=== PATIENT | male | born 1965 | race Caucasian/White ===

== ENCOUNTER 2018-01-06 17:01 | Observation (INO) | payer BC ==
[2018-01-06] MEDS ORDERED: NITROGLYCERIN OINT 1 INCH/GM PACKET TOPICAL STA (17:28)
[2018-01-06] MEDS ORDERED: ASPIRIN 81 MG PO STA (17:28)
--- NOTE | 2018-01-06 17:31 | ED ---
General Adult HPI - General Chief complaint: Chest Pain Stated complaint: Chest discomfort Time Seen by Provider: 01/06/18 17:19 Source: patient, family, RN notes reviewed Mode of arrival: ambulatory Limitations: no limitations - History of Present Illness Initial comments: Patient is a pleasant 53-year-old male presenting to the emergency department with complaints of chest discomfort. Onset was yesterday evening after "exercise ". Discomfort was severe and lasted about 5 minutes. Discomfort was heaviness with tingling to both arms. Patient did have some associated nausea and sweating and shortness of breath. Patient only has minimal discomfort in his chest today. Patient has been fatigued. No history of similar symptoms previously. - Related Data Home Medications Medication Instructions Recorded Confirmed Aspirin EC [Ecotrin] 325 mg PO DAILY PRN 01/06/18 01/06/18 Ibuprofen [Advil] 400 mg PO Q8HR PRN 01/06/18 01/06/18 Allergies Allergy/AdvReac Type Severity Reaction Status Date / Time codeine Allergy Unknown Verified 01/06/18 17:27 Review of Systems ROS Statement: Those systems with pertinent positive or pertinent negative responses have been documented in the HPI. ROS Other: All systems not noted in ROS Statement are negative. Constitutional: Denies: fever Eyes: Denies: eye pain ENT: Denies: ear pain Respiratory: Reports: dyspnea. Denies: cough Cardiovascular: Reports: chest pain Endocrine: Reports: fatigue Gastrointestinal: Reports: nausea Genitourinary: Denies: dysuria Musculoskeletal: Denies: back pain Skin: Denies: rash Neurological: Denies: weakness Past Medical History Past Medical History: No Reported History History of Any Multi-Drug Resistant Organisms: None Reported Past Surgical History: Orthopedic Surgery Past Psychological History: No Psychological Hx Reported Smoking Status: Current every day smoker Past Alcohol Use History: Occasional Past Drug Use History: None Reported General Exam Limitations: no limitations General appearance: alert, in no apparent distress Head exam: Present: atraumatic Eye exam: Present: normal appearance, PERRL ENT exam: Present: normal oropharynx Neck exam: Present: normal inspection Respiratory exam: Present: normal lung sounds bilaterally. Absent: chest wall tenderness Cardiovascular Exam: Present: regular rate, normal rhythm Expanded Peripheral pulses: 2+: Radial (R), Radial (L), Posterior Tibialis (R), Posterior Tibialis (L) GI/Abdominal exam: Present: soft. Absent: tenderness Extremities exam: Present: normal inspection. Absent: pedal edema, calf tenderness Neurological exam: Present: alert Psychiatric exam: Present: normal affect, normal mood Skin exam: Present: normal color Course Vital Signs 01/06/18 17:02 Temperature 97.9 F Pulse Rate 66 Respiratory 20 Rate Blood Pressure 149/82 O2 Sat by Pulse 98 Oximetry EKG Findings - EKG Comments: EKG Findings:: Sinus bradycardia 59. TN 166. QRS 144. QT 444. QTC 439. Left axis. Right bundle branch block. No acute ST change. Medical Decision Making - Medical Decision Making Patient reevaluated and resting comfortably in bed. Patient and family updated on results and plan. Case discussed in detail with Dr. Hernandez,, who will admit for hospital call. - Lab Data Result diagrams: 01/06/18 17:29 01/06/18 17:29 Lab Results 01/06/18 01/06/18 01/06/18 Range/Units 17:29 17:29 17:29 WBC 8.4 (3.8-10.6) k/uL RBC 4.61 (4.30-5.90) m/uL Hgb 15.0 (13.0-17.5) gm/dL Hct 45.3 (39.0-53.0) % MCV 98.3 (80.0-100.0) fL MCH 32.6 (25.0-35.0) pg MCHC 33.2 (31.0-37.0) g/dL RDW 12.7 (11.5-15.5) % Plt Count 259 (150-450) k/uL Neutrophils % 66 % Lymphocytes % 25 % Monocytes % 5 % Eosinophils % 2 % Basophils % 1 % Neutrophils # 5.5 (1.3-7.7) k/uL Lymphocytes # 2.1 (1.0-4.8) k/uL Monocytes # 0.4 (0-1.0) k/uL Eosinophils # 0.2 (0-0.7) k/uL Basophils # 0.1 (0-0.2) k/uL PT (9.0-12.0) sec INR (<1.2) APTT (22.0-30.0) sec Sodium 141 (137-145) mmol/L Potassium 4.4 (3.5-5.1) mmol/L Chloride 108 H (98-107) mmol/L Carbon Dioxide 25 (22-30) mmol/L Anion Gap 8 mmol/L BUN 17 (9-20) mg/dL Creatinine 1.00 (0.66-1.25) mg/dL Est GFR (CKD-EPI)AfAm >90 (>60 ml/min/1.73 sqM) Est GFR (CKD-EPI)NonAf 85 (>60 ml/min/1.73 sqM) Glucose 105 H (74-99) mg/dL Calcium 9.3 (8.4-10.2) mg/dL Magnesium 2.2 (1.6-2.3) mg/dL Total Bilirubin 0.5 (0.2-1.3) mg/dL AST 30 (17-59) U/L ALT 23 (21-72) U/L Alkaline Phosphatase 56 (38-126) U/L Total Creatine Kinase 163 (55-170) U/L CK-MB (CK-2) 1.2 (0.0-2.4) ng/mL CK-MB (CK-2) Rel Index 0.7 Troponin I 0.037 H* (0.000-0.034) ng/mL Total Protein 6.9 (6.3-8.2) g/dL Albumin 4.6 (3.5-5.0) g/dL 01/06/18 Range/Units 17:29 WBC (3.8-10.6) k/uL RBC (4.30-5.90) m/uL Hgb (13.0-17.5) gm/dL Hct (39.0-53.0) % MCV (80.0-100.0) fL MCH (25.0-35.0) pg MCHC (31.0-37.0) g/dL RDW (11.5-15.5) % Plt Count (150-450) k/uL Neutrophils % % Lymphocytes % % Monocytes % % Eosinophils % % Basophils % % Neutrophils # (1.3-7.7) k/uL Lymphocytes # (1.0-4.8) k/uL Monocytes # (0-1.0) k/uL Eosinophils # (0-0.7) k/uL Basophils # (0-0.2) k/uL PT 10.5 (9.0-12.0) sec INR 1.1 (<1.2) APTT 25.8 (22.0-30.0) sec Sodium (137-145) mmol/L Potassium (3.5-5.1) mmol/L Chloride (98-107) mmol/L Carbon Dioxide (22-30) mmol/L Anion Gap mmol/L BUN (9-20) mg/dL Creatinine (0.66-1.25) mg/dL Est GFR (CKD-EPI)AfAm (>60 ml/min/1.73 sqM) Est GFR (CKD-EPI)NonAf (>60 ml/min/1.73 sqM) Glucose (74-99) mg/dL Calcium (8.4-10.2) mg/dL Magnesium (1.6-2.3) mg/dL Total Bilirubin (0.2-1.3) mg/dL AST (17-59) U/L ALT (21-72) U/L Alkaline Phosphatase (38-126) U/L Total Creatine Kinase (55-170) U/L CK-MB (CK-2) (0.0-2.4) ng/mL CK-MB (CK-2) Rel Index Troponin I (0.000-0.034) ng/mL Total Protein (6.3-8.2) g/dL Albumin (3.5-5.0) g/dL - Radiology Data Interpreted by me: Chest x-ray shows no acute process. Critical Care Time Critical Care Time: Yes Total Critical Care Time: 32 Disposition Clinical Impression: Unstable angina pectoris Disposition: ADMITTED IP TO THIS HOSP Is patient prescribed a controlled substance at d/c from ED?: No Referrals: Rafi Perry MD [Primary Care Provider] - 1-2 days Decision Time: 18:43
[2018-01-06 17:40] LABS: Basophils # (A) 0.1 k/uL (0-0.2); Basophils % (A) 1 %; Eosinophils # (A) 0.2 k/uL (0-0.7); Eosinophils % (A) 2 %; HCT 45.3 % (39.0-53.0); Lymphocytes # (A) 2.1 k/uL (1.0-4.8); Lymphocytes % (A) 25 %; MCH 32.6 pg (25.0-35.0); MCHC 33.2 g/dL (31.0-37.0); MCV 98.3 fL (80.0-100.0); Mean Platelet Volume 6.5; Monocytes # (A) 0.4 k/uL (0-1.0); Monocytes % (A) 5 %; Neutrophils # (A) 5.5 k/uL (1.3-7.7); Neutrophils % (A) 66 %; Platelet Count 259 k/uL (150-450); RBC 4.61 m/uL (4.30-5.90); RDW 12.7 % (11.5-15.5); WBC 8.4 k/uL (3.8-10.6)
[2018-01-06 17:49] LABS: ALT 23 U/L (21-72); AST 30 U/L (17-59); Albumin 4.6 g/dL (3.5-5.0); Alkaline Phosphatase 56 U/L (38-126); Anion Gap 8 mmol/L; Blood Urea Nitrogen 17 mg/dL (9-20); Calcium 9.3 mg/dL (8.4-10.2); Carbon Dioxide 25 mmol/L (22-30); Chloride 108 mmol/L (98-107); Glucose 105 mg/dL (74-99); Magnesium 2.2 mg/dL (1.6-2.3); Potassium 4.4 mmol/L (3.5-5.1); Sodium 141 mmol/L (137-145); Total Bilirubin 0.5 mg/dL (0.2-1.3); Total Protein 6.9 g/dL (6.3-8.2)
[2018-01-06 18:01] LABS: INR 1.1 (<1.2); Partial Thromboplastin Time 25.8 sec (22.0-30.0); Prothrombin Time 10.5 sec (9.0-12.0)
[2018-01-06 18:13] LABS: Creatine Kinase MB 1.2 ng/mL (0.0-2.4)
[2018-01-06 18:32] LABS: Troponin I 0.037 ng/mL (0.000-0.034)
[2018-01-06] MEDS ORDERED: HEPARIN SODIUM,PORCINE 5,000 UNIT/ML 1 ML VIAL IV PRN (18:44)
[2018-01-06] MEDS ORDERED: HEPARIN SODIUM,PORCINE 5,000 UNIT/ML 1 ML VIAL IV ONE (18:44)
[2018-01-06] MEDS ORDERED: NITROGLYCERIN SL TABS 0.4 MG TAB SUBLINGUAL PRN (18:44)
--- NOTE | 2018-01-06 18:55 | XR ---
EXAMINATION: XR chest 2V DATE AND TIME: 01/06/2018 6:08 PM ORDERING PROVIDER: Micheal Celaya DO CLINICAL INDICATION: Chest Pain TECHNIQUE: PA and lateral COMPARISON: None. DESCRIPTION: The lungs are clear. The pleural spaces are negative. The cardiac silhouette is not enlarged. The mediastinal and pleural silhouettes are unremarkable. The skeletal structures are intact without focal findings. The soft tissues are unremarkable. IMPRESSION: NO ACUTE PROCESS.
[2018-01-06] MEDS: HEPARIN SOD,PORK IN 0.45% NACL 25,000 UNIT in 0.45% NACL 1 500ML.BAG IV SCH (19:19)
[2018-01-06] MEDS: METOPROLOL TARTRATE 12.5 MG TAB PO SCH (23:46)
[2018-01-06] MEDS: NITROGLYCERIN OINT 1 INCH/GM PACKET TOPICAL SCH (23:46)
[2018-01-07 00:25] LABS: Creatine Kinase MB 0.8 ng/mL (0.0-2.4); Troponin I 0.025 ng/mL (0.000-0.034)
[2018-01-07] MEDS: NITROGLYCERIN OINT 1 INCH/GM PACKET TOPICAL SCH ×3 (06:26→19:52)
[2018-01-07 06:31] LABS: Mean Platelet Volume 6.8; Platelet Count 241 k/uL (150-450)
[2018-01-07 06:36] LABS: Anion Gap 6 mmol/L; Blood Urea Nitrogen 16 mg/dL (9-20); Calcium 8.8 mg/dL (8.4-10.2); Carbon Dioxide 26 mmol/L (22-30); Chloride 109 mmol/L (98-107); Cholesterol 244 mg/dL (<200); Glucose 95 mg/dL (74-99); HDL Cholesterol 36 mg/dL (40-60); LDL Cholesterol,Calculated 164 mg/dL (0-99); Potassium 3.9 mmol/L (3.5-5.1); Sodium 141 mmol/L (137-145); Triglycerides 219 mg/dL (<150)
--- NOTE | 2018-01-07 06:36 | P.HPIM ---
History of Present Illness H&P Date: 01/06/18 Chief Complaint: Chest pain 53-year-old male with no significant past medical history. Patient has a country that he followed subsequently admitted. Patient reports that he was baseline status of health up until a few weeks ago when he started to feel little off and some generalized weakness however he was still able to go about his day. Yesterday the day prior to presentation he had sexual activity with his after which he was doing okay for the first half an hour to an hour when suddenly felt chest pressure he rates it as 10 out of 10 in severity and nonradiating however he felt some numbness going down both arms and forearms this was also associated with sudden shortness of breath and feeling nauseated without vomiting when he stood up. He has never felt like this before he popped and couple full dose aspirin . This happened around midnight. He said symptoms resolved in his able to sleep however when he woke up in the morning he was not back to his normal self. He reports sleeping for 10 hours. He was seen felt feeling hot when he woke up and breathing slightly labored. For which she decided to come to the hospital and get evaluated Patient denies any exertional dyspnea from before he is pretty active around the house is able to climb a flight of stairs with no issues. He denies any premature CAD in the family. He denies any history of hypertension diabetes mellitus or hyperlipidemia. Patient is an active smoker and smokes half a pack a day. He drinks only socially Patient otherwise denies any recent traveling, fevers or chills, headache, pain abdominal pain, denies any changes in his bowel habits or urinary habits, denies any focal neurologic deficits at this time, denies any GI bleeding Review of Systems Pertinent positives as noted in HPI. All other systems were reviewed and are negative Past Medical History Past Medical History: No Reported History History of Any Multi-Drug Resistant Organisms: None Reported Past Surgical History: Orthopedic Surgery Past Psychological History: No Psychological Hx Reported Smoking Status: Current every day smoker Past Alcohol Use History: Occasional Past Drug Use History: None Reported - Past Family History Father Family Medical History: Cancer Mother Additional Family Medical History / Comment(s): at 68 yrs old from Alzheimers Medications and Allergies Home Medications Medication Instructions Recorded Confirmed Type Aspirin EC [Ecotrin] 325 mg PO DAILY PRN 01/06/18 01/06/18 History Ibuprofen [Advil] 400 mg PO Q8HR PRN 01/06/18 01/06/18 History Allergies Allergy/AdvReac Type Severity Reaction Status Date / Time codeine Allergy Unknown Verified 01/06/18 17:27 Physical Exam Vitals: Vital Signs Temp Pulse Resp BP Pulse Ox 01/06/18 20:19 97.4 F L 87 18 137/87 98 01/06/18 19:39 97.6 F 01/06/18 19:24 87 18 137/86 97 01/06/18 17:02 97.9 F 66 20 149/82 98 Intake and Output 01/06/18 01/06/18 01/06/18 06:59 14:59 22:59 Other: Weight 90.718 kg Constitutional: No acute distress, conversant, pleasant Eyes: Anicteric sclerae, moist conjunctiva, no lid-lag Pupils equal round reactive to light ENMT: NC/AT Oropharynx clear, no erythema, exudates Neck: Supple, FROM, no masses, or JVD No carotid bruits No thyromegaly Lungs: Clear to auscultation Clear to percussion Normal respiratory effort, no accessory muscle use Cardiovascular: Heart regular in rate and rhythm, No murmurs, gallops, or rubs No peripheral edema Abdominal: Soft Nontender, no guarding, rebound or rigidity Abdomen moving with respiration Normoactive bowel sounds No hepatomegaly, No splenomegaly No palpable mass No abdominal wall hernia noted Skin: Normal temperature, tone, texture, turgor No induration No subcutaneous nodules No rash, lesions No ulcers Extremities: No digital cyanosis No clubbing Pedal pulses intact and symmetrical Radial pulses intact and symmetrical No calf tenderness Psychiatric: Alert and oriented to person, place and time Appropriate affect fair judgment Neuro Muscles Strength 5/5 in all 4 extremities Sensation to light touch grossly present throughout Cranial nerves II-XII grossly intact No focal sensory deficits Lymphatics: no palpable cervical or supraclavicular , or inguinal lymph nodes Results CBC & Chem 7: 01/06/18 17:29 01/06/18 17:29 Labs: Abnormal Lab Results - Last 24 Hours (Table) 01/06/18 01/06/18 Range/Units 17:29 17:29 Chloride 108 H (98-107) mmol/L Glucose 105 H (74-99) mg/dL Troponin I 0.037 H* (0.000-0.034) ng/mL Assessment and Plan Assessment: 53-year-old male with no significant past medical history presented and admitted under observation for chest pain rule out acute coronary syndrome. Patient reports sudden chest pain felt as pressure like after having sexual activity the day before presentation. Pain has resolved for the associated labored breathing has continued, negative the patient was still feeling odd and weak and tired for which she decided to cometo the hospital In the emergency department EKG showed evidence of right bundle branch block with no acute ST changes, his blood work showed elevated troponins, patient was started on heparin drip and was given Nitropaste Plan: NSTEMI Patient had elevated troponins and chest discomfort and labored breathing Patient started on heparin drip Nitropaste low-dose metoprolol Continue aspirin Cardiology consult Follow-up TSH, lipid panel check A1C Smoking Patient counseled to quit smoking Nicotine patch at this time due to possible underlying ACS DVT prophylaxis currently on heparin drip per ACS protocol Surrogate decision-maker: Patient delores CODE STATUS: Full code Discussed with: Patient, ER, RN Anticipated discharge: <[address]: Home A total of 60 minutes was spent on the care of this complex patient more than 50 % of the time was spent in counseling and care coordination.
[2018-01-07 07:02] LABS: Creatine Kinase MB 0.8 ng/mL (0.0-2.4); Troponin I 0.018 ng/mL (0.000-0.034)
--- NOTE | 2018-01-07 08:11 | P.CRDCN ---
History of Present Illness Consult date: 01/07/18 Requesting physician: Americo Hernandez Consult reason: chest pain Chief complaint: Chest Pain History of present illness: This is a pleasant 53-year-old gentleman with no prior documented history of hypertension, no hyperlipidemia, no diabetes, he is a smoker, although patient states he does not follow with a doctor regularly and is not sure if he ever has had his cholesterol checked in the past. He presents to the hospital with symptoms of chest discomfort. According to the patient, on Saturday he had an episode of chest pressure and heaviness with associated diaphoresis and clamminess. He states that the symptoms lasted approximately 5 minutes in duration. Yesterday overall patient states he just wasn't feeling well, he had some tingling in his arms, and decided to come to the emergency room for further evaluation. According to the patient, as he recalls, over the past several weeks he states he is in much more fatigued than usual. EKG on presentation here shows a sinus bradycardia with a right bundle branch block pattern and nonspecific ST-T wave changes. Subsequent EKG shows a sinus bradycardia with right bundle branch block pattern and anterior lateral T-wave inversion noted. Chest x-ray did not reveal any acute process. Blood pressure on arrival here 148/80 with a heart rate in the 60s, 98% on room air. The pressure this morning 102/60 with a heart rate in the 50s, 92% on room air. CBC is normal. Sodium 141, potassium 3.9, chloride 109, BUN 16, creatinine 1.0. Troponins 0.037, 0.025, 0.018. Cholesterol 244, triglycerides 219, LDL 164, HDL 36. At the time of my examination this morning, patient is currently chest pain-free. He does complain this morning of a mild headache. He is on IV heparin. Patient was given an aspirin in the emergency room and initiated on IV heparin. He was also started on metoprolol 12-1/2 mg one tablet by mouth twice a day along with Nitropaste. We will add Lipitor 80 to his medication regime. Past Medical History Past Medical History: No Reported History History of Any Multi-Drug Resistant Organisms: None Reported Past Surgical History: Orthopedic Surgery Past Anesthesia/Blood Transfusion Reactions: No Reported Reaction Past Psychological History: No Psychological Hx Reported Smoking Status: Current every day smoker Past Alcohol Use History: Occasional Past Drug Use History: None Reported - Past Family History Father Family Medical History: Cancer Mother Additional Family Medical History / Comment(s): at 68 yrs old from Alzheimers Medications and Allergies Home Medications Medication Instructions Recorded Confirmed Type Aspirin EC [Ecotrin] 325 mg PO DAILY PRN 01/06/18 01/06/18 History Ibuprofen [Advil] 400 mg PO Q8HR PRN 01/06/18 01/06/18 History Allergies Allergy/AdvReac Type Severity Reaction Status Date / Time codeine Allergy Unknown Verified 01/06/18 17:27 Physical Exam Vitals: Vital Signs Temp Pulse Pulse Resp BP BP Pulse Ox 01/07/18 07:26 97.2 F L 52 L 16 102/60 92 L 01/07/18 04:00 97.9 F 51 L 16 106/63 95 01/07/18 00:00 98.0 F 57 L 16 114/69 95 01/06/18 21:13 97.3 F L 54 L 16 126/83 95 01/06/18 20:19 97.4 F L 87 18 137/87 98 01/06/18 19:39 97.3 F L 54 L 16 126/83 95 01/06/18 19:24 87 18 137/86 97 01/06/18 17:02 97.9 F 66 20 149/82 98 Intake and Output 01/06/18 01/07/18 01/07/18 22:59 06:59 14:59 Intake Total 384.770 Balance 384.770 Intake: IV 160 Heparin Sod,Pork in 0.45% 160 NaCl 25,000 unit In 0.45 % NaCl 1 500ml.bag @ 11 UNITS/KG/HR 19.95 mls/hr IV .Q24H [facility] Rx#: [id number] Intake, IV Titration 224.770 Amount Heparin Sod,Pork in 0.45% 224.770 NaCl 25,000 unit In 0.45 % NaCl 1 500ml.bag @ 11 UNITS/KG/HR 19.95 mls/hr IV .Q24H [facility] Rx#: [id number] Other: Weight 93.44 kg 94.9 kg PHYSICAL EXAMINATION: GENERAL: This is a pleasant 53-year-old gentleman in no acute distress at time of my examination. HEENT: Head is atraumatic, normocephalic. Pupils equal, round. Sclera anicteric. Conjunctiva are clear. Mucous membranes of the mouth are moist. Neck is supple. There is no elevated jugular venous pressure.No carotid bruit is heard. HEART EXAMIATION: [Heart S1, S2 normal. No murmur or blunt heard.] CHEST EXAMNATION:[ Lungs are clear to auscultation and precussion. No chest wall tenderness is noted on palpation or with deep brathing.] ADOMEN: [ Soft, nontender. Bowel sounds are heard. No organomegay noted]. EXTRMITIES:[ 2+ peripheral pulses with no evidence of peripheral edema and no calf tendernes noted]. NEUOLOGIC [patient is awake, alert and orientd X3.] . Results 01/07/18 05:26 01/07/18 05:26 Cardiac Enzymes 01/06/18 01/06/18 01/06/18 Range/Units 17:29 17:29 23:39 AST 30 (17-59) U/L CK-MB (CK-2) 1.2 0.8 (0.0-2.4) ng/mL Troponin I 0.037 H* 0.025 (0.000-0.034) ng/mL 01/07/18 Range/Units 05:26 AST (17-59) U/L CK-MB (CK-2) 0.8 (0.0-2.4) ng/mL Troponin I 0.018 (0.000-0.034) ng/mL Coagulation 01/06/18 01/06/18 01/07/18 Range/Units 17:29 23:39 05:26 PT 10.5 (9.0-12.0) sec APTT 25.8 54.0 H 46.1 H (22.0-30.0) sec Lipids 01/07/18 Range/Units 05:26 Triglycerides 219 H (<150) mg/dL Cholesterol 244 H (<200) mg/dL HDL Cholesterol 36 L (40-60) mg/dL CBC 01/06/18 01/07/18 Range/Units 17:29 05:26 WBC 8.4 (3.8-10.6) k/uL RBC 4.61 (4.30-5.90) m/uL Hgb 15.0 (13.0-17.5) gm/dL Hct 45.3 (39.0-53.0) % Plt Count 259 241 (150-450) k/uL Comprehensive Metabolic Panel 01/06/18 01/07/18 Range/Units 17:29 05:26 Sodium 141 141 (137-145) mmol/L Potassium 4.4 3.9 (3.5-5.1) mmol/L Chloride 108 H 109 H (98-107) mmol/L Carbon Dioxide 25 26 (22-30) mmol/L BUN 17 16 (9-20) mg/dL Creatinine 1.00 1.00 (0.66-1.25) mg/dL Glucose 105 H 95 (74-99) mg/dL Calcium 9.3 8.8 (8.4-10.2) mg/dL AST 30 (17-59) U/L ALT 23 (21-72) U/L Alkaline Phosphatase 56 (38-126) U/L Total Protein 6.9 (6.3-8.2) g/dL Albumin 4.6 (3.5-5.0) g/dL Current Medications Generic Name Dose Route Start Last Admin Trade Name Freq PRN Reason Stop Dose Admin Aspirin 325 mg 01/07/18 09:00 01/07/18 06:32 Aspirin PO 325 mg DAILY [facility] Administration Atorvastatin Calcium 80 mg 01/07/18 09:00 Lipitor PO DAILY [facility] Heparin Sodium (Porcine) 0 unit 01/06/18 18:44 Heparin IV Q6HR PRN Low PTT Protocol Heparin Sodium/Sodium Chloride 500 mls @ 19.95 mls/hr 01/06/18 18:45 06:35 25,000 unit/ Sodium Chloride IV 13 units/kg/hr .Q24H [facility] 23.58 mls/hr Titration Protocol 11 UNITS/KG/HR Metoprolol Tartrate 12.5 mg 01/06/18 21:00 01/06/18 23:46 Lopressor PO Not Given BID [facility] Nitroglycerin 1 inch 01/07/18 00:00 01/07/18 06:26 Nitro-Bid Oint TOPICAL 1 inch Q6HR [facility] Administration Nitroglycerin 0.4 mg 01/06/18 18:44 Nitrostat SUBLINGUAL Q5M PRN Chest Pain Sodium Chloride 10 ml 01/06/18 21:00 01/06/18 21:50 Saline Flush IV Not Given BID [facility] Intake and Output 01/06/18 01/07/18 01/07/18 22:59 06:59 14:59 Intake Total 384.770 Balance 384.770 Intake: IV 160 Heparin Sod,Pork in 0.45% 160 NaCl 25,000 unit In 0.45 % NaCl 1 500ml.bag @ 11 UNITS/KG/HR 19.95 mls/hr IV .Q24H [facility] Rx#: [id number] Intake, IV Titration 224.770 Amount Heparin Sod,Pork in 0.45% 224.770 NaCl 25,000 unit In 0.45 % NaCl 1 500ml.bag @ 11 UNITS/KG/HR 19.95 mls/hr IV .Q24H [facility] Rx#: [id number] Other: Weight 93.44 kg 94.9 kg 01/07/18 05:26 01/07/18 05:26 EKG Interpretations (text) EKG shows a sinus bradycardia with right bundle branch block pattern and ST-T wave changes noted in the anterior lateral leads. Assessment and Plan Plan: Assessment and plan #1 symptoms of chest pressure and heaviness with associated diaphoresis, troponin 0.037, 0.025, 0.018. EKG shows a sinus bradycardia with right bundle branch block pattern and ST-T wave changes noted in the anterior lateral leads, suggesting acute coronary syndrome. #2 hyperlipidemia untreated #3 nicotine dependence #4 no prior documented history of hypertension or diabetes, no family history of premature coronary artery disease Plan We will start the patient on 80 mg of Lipitor now and daily. Continue aspirin, beta nakia, IV heparin, and Nitropaste. Echocardiogram with Doppler study has been requested. Patient has been advised to undergo cardiac catheterization , the risks and the benefits were explained to the patient in detail and he is willing to proceed. This will be performed by Dr. VC Medina. Further recommendations will be based on these findings and the patient's clinical course. DNP note has been reviewed, I agree with a documented findings and plan of care. Patient was seen and examined.
[2018-01-07] MEDS: METOPROLOL TARTRATE 12.5 MG TAB PO SCH ×2 (08:24→21:18)
[2018-01-07] MEDS: ATORVASTATIN 80 MG TAB PO SCH (08:44)
[2018-01-07] MEDS ORDERED: ASPIRIN 325 MG TAB PO SCH (09:00)
--- NOTE | 2018-01-07 10:48 | P.PN ---
Subjective Patient was admitted with chest pain and had mild elevation of troponin. Also routine lab work showed TSH>100. This am his CP has resolved. He has no SOB. He does describe worsening fatigue, low stamina, dry skin and voice changes over the last few weeks. He ascribed his symptoms to allergic sinusitis. No history of thyroidal disease in family, no h/o neck surgeries or radiation. Labs: reviewed this am, TSH>100, T4= 0.2 L CXR: reviwed Objective - Vital Signs Vital signs: Vital Signs Temp 97.2 F L 01/07/18 07:26 Pulse 52 L 01/07/18 07:26 Resp 16 01/07/18 07:26 BP 102/60 01/07/18 07:26 Pulse Ox 92 L 01/07/18 07:26 Intake & Output 01/06/18 01/07/18 01/07/18 18:59 06:59 18:59 Intake Total 384.770 52.269 Balance 384.770 52.269 Weight 90.718 kg 94.9 kg Intake: IV 160 Heparin Sod,Pork in 0.45% 160 NaCl 25,000 unit In 0.45 % NaCl 1 500ml.bag @ 11 UNITS/KG/HR 19.95 mls/hr IV .Q24H YORDY Rx#: [id number] Intake, IV Titration 224.770 52.269 Amount Heparin Sod,Pork in 0.45% 224.770 52.269 NaCl 25,000 unit In 0.45 % NaCl 1 500ml.bag @ 11 UNITS/KG/HR 19.95 mls/hr IV .Q24H YORDY Rx#: [id number] - Constitutional General appearance: Present: cooperative, no acute distress - EENT Eyes: Present: anicteric sclerae, EOMI, PERRLA - Neck Neck: Present: normal ROM. Absent: lymphadenopathy, thyromegaly Thyroid: bilateral: normal size - Respiratory Respiratory: bilateral: CTA - Cardiovascular Rhythm: regular Heart sounds: normal: S1, S2 Abnormal Heart Sounds: Absent: rub - Gastrointestinal General gastrointestinal: Present: normal bowel sounds, soft. Absent: organomegaly, tenderness - Integumentary Integumentary: Absent: pale, rash, ulcer - Neurologic Neurologic: Present: CNII-XII intact - Musculoskeletal Musculoskeletal: Present: gait normal, strength equal bilaterally - Psychiatric Psychiatric: Present: A&O x's 3 - Labs CBC & Chem 7: 01/07/18 05:26 01/07/18 05:26 Labs: Abnormal Lab Results - Last 24 Hours (Table) 01/06/18 01/06/18 01/06/18 Range/Units 17:29 17:29 23:39 APTT 54.0 H (22.0-30.0) sec Chloride 108 H (98-107) mmol/L Glucose 105 H (74-99) mg/dL Troponin I 0.037 H* (0.000-0.034) ng/mL Triglycerides (<150) mg/dL Cholesterol (<200) mg/dL LDL Cholesterol, Calc (0-99) mg/dL HDL Cholesterol (40-60) mg/dL TSH (0.465-4.680) mIU/L Free T4 (0.78-2.19) ng/dL 01/07/18 01/07/18 Range/Units 05:26 05:26 APTT 46.1 H (22.0-30.0) sec Chloride 109 H (98-107) mmol/L Glucose (74-99) mg/dL Troponin I (0.000-0.034) ng/mL Triglycerides 219 H (<150) mg/dL Cholesterol 244 H (<200) mg/dL LDL Cholesterol, Calc 164 H (0-99) mg/dL HDL Cholesterol 36 L (40-60) mg/dL TSH >100.000 H (0.465-4.680) mIU/L Free T4 0.20 L (0.78-2.19) ng/dL - Imaging and Cardiology Chest x-ray: report reviewed, image reviewed Assessment and Plan Plan: 1. Chest pain mild elevation of troponin ACS, c cath planned for today r/o percarditis or effusions related to hypothyroidism echo pending 2. hypothyroidism random cortisol this am ordered stats TPO antibodies endocrinology consult discussed therapy with the patient 3. Hyperlipidemia with hypertrygliceridemia due to hypothyroidism started on Lipitor
[2018-01-07] MEDS ORDERED: SODIUM CHLORIDE 0.9% 1,000 ML IV ONE (11:10)
[2018-01-07] MEDS ORDERED: MIDAZOLAM 2 MG/2 ML VIAL IVP ONE (11:28)
[2018-01-07] MEDS ORDERED: diphenhydrAMINE 50 MG/ML 1 ML VIAL IVP ONE (11:28)
[2018-01-07] MEDS ORDERED: fentaNYL (PF) 50 MCG/ML 2 ML AMP IVP ONE (11:28)
[2018-01-07] MEDS ORDERED: LIDOCAINE 1% INJ 10MG/ML (20 ML MDV) SQ ONE (11:30)
[2018-01-07] MEDS ORDERED: TICAGRELOR 90 MG TAB PO ONE (11:48)
[2018-01-07] MEDS ORDERED: BIVALIRUDIN BOLUS 250 MG/50 ML IV ONE (12:02)
[2018-01-07] MEDS: NITROGLYCERIN 1000MCG/10ML SYRINGE INTRACORON ONE ×2 (12:04→12:10)
[2018-01-07] MEDS ORDERED: BIVALIRUDIN 250 MG in SODIUM CHLORIDE 0.9% 50 ML IV ONE (12:06)
[2018-01-07] MEDS ORDERED: IOPAMIDOL-370 125ML BTL INJ ONE (12:08)
[2018-01-07] MEDS ORDERED: IOPAMIDOL-370 100ML BTL INJ ONE (12:13)
[2018-01-07] MEDS ORDERED: NITROGLYCERIN SL TABS 0.4 MG TAB SUBLINGUAL PRN (12:21)
[2018-01-07] MEDS ORDERED: ZOLPIDEM 5 MG TAB PO PRN (12:21)
[2018-01-07] MEDS ORDERED: RX INFO: IV CONTRAST WAS GIVEN 1 EACH MISC MISCELLANE PRN (12:21)
[2018-01-07] MEDS ORDERED: ATROPINE SULFATE 0.1 MG/ML 10ML SYRINGE IV PRN (12:21)
[2018-01-07] MEDS ORDERED: MAG HYDROX/AL HYDROX/SIMETH 30 ML CUP PO PRN (12:21)
[2018-01-07] MEDS ORDERED: SODIUM CHLORIDE 0.9% 1,000 ML IV SCH (12:30)
--- NOTE | 2018-01-07 13:00 | ECHOF ---
Referral Reason:chest pain MEASUREMENTS -------- HEIGHT: 185.4 cm WEIGHT: 94.8 kg BP: 102/60 RVIDd: 3.1 cm (< 3.3) IVSd: 1.3 cm (0.6 - 1.1) LVIDd: 4.0 cm (3.9 - 5.3) LVPWd: 1.3 cm (0.6 - 1.1) IVSs: 1.8 cm LVIDs: 2.5 cm LVPWs: 1.8 cm Ao Diam: 4.2 cm (2.0 - 3.7) AV Cusp: 2.6 cm (1.5 - 2.6) LA Diam: 3.0 cm (2.7 - 3.8) MV EXCURSION: 14.577 mm (> 18.000) MV EF SLOPE: 70 mm/s (70 - 150) EPSS: 0.3 cm MV E Luis E: 0.52 m/s MV DecT: 351 ms MV A Luis E: 0.38 m/s MV E/A Ratio: 1.36 RAP: 5.00 mmHg RVSP: 17.61 mmHg FINDINGS -------- Sinus rhythm. This was a technically good study. The left ventricular size is normal. There is mild concentric left ventricular hypertrophy. Overa ll left ventricular systolic function is normal with, an EF between 55 - 60 %. The left atrium is normal in size. The right atrium is normal in size. The aortic valve is trileaflet and appears structurally normal. The mitral valve leaflets are mildly thickened. There is trace mitral regurgitation. Trace tricuspid regurgitation present. The right ventricular systolic pressure, as measured by Dopp ler, is 17.61mmHg. Pulmonic valve appears structurally normal. The aortic root is dilated measuring 4.2 cm Normal inferior vena cava with normal inspiratory collapse consistent with estimated right atrial pre ssure of 5 mmHg. The pericardium is normal. CONCLUSIONS -------- 1. Sinus rhythm. 2. This was a technically good study. 3. The left ventricular size is normal. 4. There is mild concentric left ventricular hypertrophy. 5. Overall left ventricular systolic function is normal with, an EF between 55 - 60 %. 6. The left atrium is normal in size. 7. The right atrium is normal in size. 8. The aortic valve is trileaflet and appears structurally normal. 9. The mitral valve leaflets are mildly thickened. 10. There is trace mitral regurgitation. 11. Trace tricuspid regurgitation present. 12. The right ventricular systolic pressure, as measured by Doppler, is 17.61mmHg. 13. Pulmonic valve appears structurally normal. 14. The aortic root is dilated measuring 4.2 cm 15. Normal inferior vena cava with normal inspiratory collapse consistent with estimated right atrial pressure of 5 mmHg. 16. The pericardium is normal. FORMAL WAITER/WAITRESS: Faiza Reyes RDCS
[2018-01-07] MEDS: HEPARIN SOD,PORK IN 0.45% NACL 25,000 UNIT in 0.45% NACL 1 500ML.BAG IV SCH (13:25)
[2018-01-07 13:42] LABS: Hemoglobin A1C 5.9 % (4.0-6.0)
[2018-01-07 13:49] VITALS: BMI 26.1
--- NOTE | 2018-01-07 14:09 | PTCA ---
PERCUTANEOUSTRANS CORORONARY ANGIOGRAPHY DATE OF SERVICE: 01/07/2018 PERFORMING PHYSICIAN: Golden Caldwell MD, Food Bagging Machine Operator PROCEDURE PERFORMED: Successful stenting of the mid RCA using 3.5 x 28 mm Xience ANDER with good angiographic results and without reduction of stenosis from 70% to 0%. INDICATION: This is a pleasant 53-year-old gentleman who was admitted to the hospital with chest discomfort and ruled in for acute non ST-elevation myocardial infarction. He underwent A heart catheterization by Dr. Medina and was found to have severe disease involving the mid RCA. Also, he was found to have intermediate to severe disease involving the LAD. Position was made towards percutaneous coronary intervention of the RCA. APPROACH: Right common femoral artery. COMPLICATION: None. LEVEL OF SEDATION: Moderate sedation length of 20 minutes. PROCEDURE DESCRIPTION: After diagnostic heart catheterization was performed by Dr. Janice Medina and after reviewing the angiogram, we decided to pursue with intervention on the RCA. Anticoagulation was initiated using Angiomax. Subsequently I did engage the RCA using a using a run-through wire. After that, I did direct stenting of the lesion using 3.5 x 28 mm Xience ANDER where the stent was positioned under fluoroscopy guidance and deployed under 16 atmospheres for 20 seconds. The following angiogram showed good angiographic results. The procedure was completed without any complication. POSTPROCEDURE MANAGEMENT: 1. Dual anti-platelet therapy. 2. Risk factor modifications. 3. Follow up with the patient. MMMOMOL / HOLLYN: [id number] /
--- NOTE | 2018-01-07 15:48 | CC ---
CARDIAC CATHETERIZATION REPORT Mr. Hardy is a 53-year-old gentleman who was admitted with a history suggestive of non- Q-wave myocardial infarction. PROCEDURE: The right groin was prepped and draped in the usual manner. The skin was infiltrated with 2% Xylocaine. The right femoral artery was entered using Seldinger technique. A #6- Tongan sheath was placed in. Selective coronary angiography was then performed in multiple projections and the left ventricular pressures were obtained. The patient tolerated the procedure well. HEMODYNAMICS: The left ventricular end-diastolic pressure is 12 mmHg prior to angiography. No gradient is noted across the aortic valve. Moderate sedation was used. Sedation time is 18 minutes. SELECTIVE CORONARY ANGIOGRAPHY: Left main coronary artery is normally patent. LAD is a good caliber blood vessel and uses a good size diagonal branch. Mid LAD is about 40% stenosis. Circumflex coronary artery: Mid circumflex coronary artery has about 50% stenosis. Right coronary artery is diffusely diseased and mid portion has 80% stenosis. FINAL IMPRESSION: This study shows about 80% stenosis in mid to distal right coronary artery. There is a mild plaque noted in the LAD and circumflex with 40% stenosis. RECOMMENDATIONS: Films were reviewed with Dr. Caldwell. We will proceed with a stent to the right coronary artery. Aggressive lipid modification would be suggested and he will be subsequently evaluated with a stress test. MMODL / IJN: [id number] /
[2018-01-07] MEDS: NICOTINE 14MG/24HR PATCH TRANSDERM SCH (18:10)
[2018-01-07] MEDS: TICAGRELOR 90 MG TAB PO SCH (21:22)
[2018-01-08] MEDS: NITROGLYCERIN OINT 1 INCH/GM PACKET TOPICAL SCH ×2 (00:35→05:41)
[2018-01-08 05:56] LABS: Mean Platelet Volume 7.2; Platelet Count 248 k/uL (150-450)
[2018-01-08] MEDS ORDERED: LEVOTHYROXINE 75 MCG TAB PO SCH (06:30)
[2018-01-08 06:39] LABS: Anion Gap 5 mmol/L; Blood Urea Nitrogen 13 mg/dL (9-20); Calcium 8.9 mg/dL (8.4-10.2); Carbon Dioxide 27 mmol/L (22-30); Chloride 110 mmol/L (98-107); Glucose 84 mg/dL (74-99); Sodium 142 mmol/L (137-145)
[2018-01-08 07:34] LABS: T4, Free (Free Thyroxine) 0.16 ng/dL (0.78-2.19)
[2018-01-08] MEDS: NICOTINE 14MG/24HR PATCH TRANSDERM SCH (08:33)
[2018-01-08] MEDS: ATORVASTATIN 80 MG TAB PO SCH (08:35)
[2018-01-08] MEDS: METOPROLOL TARTRATE 12.5 MG TAB PO SCH (08:35)
[2018-01-08] MEDS: TICAGRELOR 90 MG TAB PO SCH (08:35)
[2018-01-08] MEDS ORDERED: ASPIRIN 81 MG PO SCH (09:00)
[2018-01-08 10:31] VITALS: RESP 18
--- NOTE | 2018-01-08 12:43 | P.PN ---
Subjective Progress Note Date: 01/08/18 This is a pleasant 53-year-old gentleman with no prior documented history of hypertension, no hyperlipidemia, no diabetes, he is a smoker, although patient states he does not follow with a doctor regularly and is not sure if he ever has had his cholesterol checked in the past. He presents to the hospital with symptoms of chest discomfort. According to the patient, on Saturday he had an episode of chest pressure and heaviness with associated diaphoresis and clamminess. He states that the symptoms lasted approximately 5 minutes in duration. Yesterday overall patient states he just wasn't feeling well, he had some tingling in his arms, and decided to come to the emergency room for further evaluation. According to the patient, as he recalls, over the past several weeks he states he is in much more fatigued than usual. EKG on presentation here shows a sinus bradycardia with a right bundle branch block pattern and nonspecific ST-T wave changes. Subsequent EKG shows a sinus bradycardia with right bundle branch block pattern and anterior lateral T-wave inversion noted. Chest x-ray did not reveal any acute process. Blood pressure on arrival here 148/80 with a heart rate in the 60s, 98% on room air. The pressure this morning 102/60 with a heart rate in the 50s, 92% on room air. CBC is normal. Sodium 141, potassium 3.9, chloride 109, BUN 16, creatinine 1.0. Troponins 0.037, 0.025, 0.018. Cholesterol 244, triglycerides 219, LDL 164, HDL 36. At the time of my examination this morning, patient is currently chest pain-free. He does complain this morning of a mild headache. He is on IV heparin. Patient was given an aspirin in the emergency room and initiated on IV heparin. He was also started on metoprolol 12-1/2 mg one tablet by mouth twice a day along with Nitropaste. We will add Lipitor 80 to his medication regime. 01/08/2018 Patient was seen and examined this morning, denies any chest pain or difficulty in breathing. He was taken to the cardiac catheterization lab yesterday where he underwent angioplasty and stenting of the right coronary artery. Patient was also noted to have significant disease in the LAD. His EKG was reviewed this morning which showed a normal sinus rhythm with T-wave inversion in the anterior lateral leads. Hemodynamically he is stable and his denies any chest discomfort today. Blood pressure 136/70 with a heart rate in the 60s. Patient was also noted to have a significantly elevated TSH and was initiated on Synthroid. Objective - Vital Signs Vital signs: Vital Signs Temp 97.1 F L 01/08/18 08:00 Pulse 60 01/08/18 08:00 Resp 18 01/08/18 08:00 BP 136/78 01/08/18 08:00 Pulse Ox 96 01/08/18 08:00 Intake & Output 01/07/18 01/08/18 01/08/18 18:59 06:59 18:59 Intake Total 514.537 9074 118 Balance 217.836 2631 118 Weight 94.9 kg 94.6 kg Intake: IV 222.4 Intake, IV Titration 532.978 5585 Amount Heparin Sod,Pork in 0.45% 52.269 NaCl 25,000 unit In 0.45 % NaCl 1 500ml.bag @ 11 UNITS/KG/HR 19.95 mls/hr IV .Q24H [facility] Rx#: [id number] Sodium Chloride 0.9% 1, 75 1200 000 ml @ 100 mls/hr IV . Q10H [facility] Rx#:[id number] Oral 240 720 118 Other: Voiding Method Toilet Toilet # Voids 4 - Exam PHYSICAL EXAMINATION: GENERAL: 53-year-old gentleman in no acute distress at the time of my examination HEENT: Head is atraumatic, normocephalic. Pupils equal, round. Sclera anicteric. Conjunctiva are clear. Mucous membranes of the mouth are moist. Neck is supple. There is no elevated jugular venous pressure.] bruit is heard. HEART EXAMINATION: Heart S1, S2 normal. No murmur or gallop heard. CHEST EXAMINATION: Lungs are clear to auscultation and precussion. No chest wall tenderness is noted on palpation or with deep breathing. ABDOMEN: Soft, nontender. Bowel sounds are heard. No organomegaly noted. Right groin soft, no evidence of any hematoma. EXTREMITIES: 2+ peripheral pulses with no evidence of peripheral edema and no calf tenderness noted. NEUROLOGIC patient is awake, alert and oriented ?-3. . - Labs CBC & Chem 7: 01/08/18 05:31 01/08/18 05:31 Labs: Abnormal Lab Results - Last 24 Hours (Table) 01/07/18 01/08/18 Range/Units 05:26 05:31 Chloride 110 H (98-107) mmol/L TSH >100.000 H (0.465-4.680) mIU/L Free T4 0.16 L (0.78-2.19) ng/dL Thyroid Peroxidase Ab >75958.0 H (0.0-59.9) U/mL Assessment and Plan Plan: Assessment and plan #1 symptoms of chest pressure and heaviness with associated diaphoresis, troponin 0.037, 0.025, 0.018. EKG shows a sinus bradycardia with right bundle branch block pattern and ST-T wave changes noted in the anterior lateral leads, suggesting acute coronary syndrome. Status post angioplasty and stenting of the right coronary artery, patient was also noted to have a significant lesion in the LAD. #2 hyperlipidemia untreated #3 nicotine dependence #4 no prior documented history of hypertension or diabetes, no family history of premature coronary artery disease #5 hypothyroidism Plan Echocardiogram with Doppler study was performed which revealed a normal left ventricular systolic function. Patient may be able to be discharged home today from cardiology's perspective. We will make him a follow-up appointment to see Dr. VC Medina in the office post discharge. Patient will be discharged home on aspirin 81 mg daily, Lipitor 80 mg daily, Synthroid 75 g daily, and nicotine patch, Brilinta 90 mg twice a day, and sublingual nitroglycerin as needed for chest pain. Patient on a beta nakia because of his bradycardia. DNP note has been reviewed, I agree with a documented findings and plan of care. Patient was seen and examined.
[2018-01-08 13:28] VITALS: BP 135/89; PULSE 54; TEMP 96.3
--- NOTE | 2018-01-08 14:39 | P.DS ---
Providers Date of admission: 01/06/18 18:44 Attending physician: Americo Hernandez MD Consults: 01/06/18 18:44 Consult Physician Urgent Consulting Provider: Andres Rosario Consult Reason/Comments: ua Do you want consulting provider notified?: Yes 01/07/18 08:58 Consult Physician Routine Consulting Provider: Lindy Navarro Consult Reason/Comments: Severe new hypothyroidism Do you want consulting provider notified?: Yes 01/07/18 12:21 Consult Physician Routine Consulting Provider: [facility] Consult Reason/Comments: Post Interventional patient Do you want consulting provider notified?: Already Contacted Primary care physician: Rafi Perry [facility] Hospital Course: Admission diagnosis: Fatigue and chest pain Discharge diagnosis: 1. Non-STEMI 2. 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 Hyperlipidemia including hyper cholesterolemia and hypertriglyceridemia Procedures done on this admission: Cardiac catheterization with PCI with drug-eluting stent to RCA Severe disease of LAD Echocardiogram: Mild LVH with EF of 55% no valvular disease Pertinent lab results: TSH more than 100 with T4 of 0.2; TPO antibody greater than 13,000 Reason for admission: 53-year-old gentleman without significant past medical history who came to emergency department with complaint of extreme fatigue, low energy and stamina, malaise and chest pain. Chest pain started during exertion sexual activity was retrosternal pressure-like associated with some nausea. Symptoms of fatigue and low energy also present for several weeks. In the emergency department evaluation included EKG that shows some nonspecific ST-T wave changes, chest x-ray that was unremarkable and troponin that was elevated up to 0.0347. Hospital course: Patient was admitted to cardiac telemetry and started on antiplatelets metoprolol, Lipitor and heparin drip. He underwent cardiac catheterization and PCI with above results. After catheterization, he was started on levothyroxine 75 g, low dose with the plan of slow and cautious titration up in view of his coronary disease Patient started feeling better and is more energy and he was deemed stable for discharge by cardiology. Disposition: Date of discharge patient was seen and examined. He felt much better and there was no any further chest pain. On examination vital signs reviewed and he was found to be bradycardic in 50s and the Toprol was discontinued. Head and neck examination was without any thyromegaly or masses in the neck Cardiovascular: Regular rhythm and rate S1-S2 no murmurs rubs or gallops Lungs: Clear to auscultation bilaterally Abdomen soft nontender nondistended positive bowel sounds Extremities: No peripheral edema new medications were discussed and explained to the patient. Smoking cessation was strongly advised. He is to follow-up with PCP within a week. Beta nakia was not prescribed at time of discharge because of heart rate in 50s. He is advised to follow-up with PCP and/or endocrinology regarding his thyroid problem with subsequent follow-up of TSH within 4-6 weeks. He was explained to take levothyroxine in the morning on empty stomach. He was explained that he will need titration of the medication 2 weeks. He was discharged home in stable condition. Greater than 35 minutes was spent on this discharge process between 8 AM and 3 PM no continuously including [id number] evaluation with the patient, coordination of care and discussing with the patient all the findings and plan of care. Patient Condition at Discharge: Good Plan - Discharge Summary Discharge Rx Participant: No New Discharge Prescriptions: New Atorvastatin [Lipitor] 80 mg PO DAILY #30 tab Nicotine 14Mg/24Hr Patch [Habitrol] 1 patch TRANSDERM DAILY #30 patch Nitroglycerin Sl Tabs [Nitrostat] 0.4 mg SUBLINGUAL Q5M PRN #253 tab PRN Reason: Chest Pain Ticagrelor [Brilinta] 90 mg PO BID #60 tab Levothyroxine Sodium [Synthroid] 75 mcg PO DAILY@0630 #30 tab Aspirin 81 mg PO DAILY #30 chew Discontinued Ibuprofen [Advil] 400 mg PO Q8HR PRN PRN Reason: Pain Aspirin EC [Ecotrin] 325 mg PO DAILY Discharge Medication List Aspirin 81 mg PO DAILY #30 chew 01/08/18 [Rx] Atorvastatin [Lipitor] 80 mg PO DAILY #30 tab 01/08/18 [Rx] Levothyroxine Sodium [Synthroid] 75 mcg PO DAILY@0630 #30 tab 01/08/18 [Rx] Nicotine 14Mg/24Hr Patch [Habitrol] 1 patch TRANSDERM DAILY #30 patch 01/08/18 [ Rx] Nitroglycerin Sl Tabs [Nitrostat] 0.4 mg SUBLINGUAL Q5M PRN #253 tab 01/08/18 [ Rx] Ticagrelor [Brilinta] 90 mg PO BID #60 tab 01/08/18 [Rx] Follow up Appointment(s)/Referral(s): Lindy Navarro MD [STAFF PHYSICIAN] - 1 Week Nany Medina MD [STAFF PHYSICIAN] - 01/13/18 3:15 pm Patient Instructions/Handouts: *Surgery [facility] - After Heart Catheterization - [employer] Instructions, How to Stop Smoking (DC), Heart Healthy Diet (DC) , Coronary Intravascular Stent Placement (DC) Activity/Diet/Wound Care/Special Instructions: Heart healthy diet Avoid smoking Usual activity Discharge Disposition: HOME SELF-CARE
== END 2018-01-08 15:05 | disposition home or self-care (01) ==
LOC: EC 17:01 → 6SEL 18:44
PROVIDERS: ADMIT Hospitalist; ATTEND Hospitalist
DX: I21.4 Non-ST elevation (NSTEMI) myocardial infarction (principal); E06.3 Autoimmune thyroiditis; E78.2 Mixed hyperlipidemia; I25.10 Atherosclerotic heart disease of native coronary artery without angina pectoris; E03.9 Hypothyroidism, unspecified; R00.1 Bradycardia, unspecified; R51 Headache; J30.9 Allergic rhinitis, unspecified; I45.10 Unspecified right bundle-branch block; F17.210 Nicotine dependence, cigarettes, uncomplicated; Z79.82 Long term (current) use of aspirin; Z88.5 Allergy status to narcotic agent; Z82.0 Family history of epilepsy and other diseases of the nervous system; Z80.9 Family history of malignant neoplasm, unspecified
CPT/HCPCS: 99291 ×2; 96365 ×2; 96366 ×2; 36415; 93005; 93306; 93458; 84439 ×2; 80061; 80053; 80048 ×2; 84443 ×2; 82533; 82550 ×2; 82553 ×2; 83735; 84484 ×3; 85025; 85049 ×2; 85610; 85730 ×2; 86376; 86780; 83036; 71046; G0378 ×3; C9600; C1887; C1894; C1769 ×2; C1874; C1760; S4990 ×2; J2250; J1200; J1644 ×2; J2001; J3010; J0583; Q9967 ×2

== ENCOUNTER 2018-07-29 17:43 | Observation (INO) | payer OTHER ==
--- NOTE | 2018-07-29 17:56 | ED ---
Chest Pain HPI - General Chief Complaint: Chest Pain Stated Complaint: chest pain Source: patient, RN notes reviewed, old records reviewed Mode of arrival: ambulatory Limitations: no limitations - History of Present Illness MD Complaint: chest pain -: days(s) (3) Onset: during exertion Pain Location: left chest Pain Radiation: LUE Severity: moderate Severity scale (1-10): 4 Quality: heaviness Consistency: intermittent Improves With: nothing Worsens With: nothing Anginal Symptoms: dyspnea Other Symptoms: cough (Patient is smoker) Treatments Prior to Arrival: none - Related Data Home Medications Medication Instructions Recorded Confirmed Clopidogrel [Plavix] 75 mg PO DAILY 07/29/18 07/29/18 Levothyroxine Sodium [Synthroid] 150 mcg PO QAM 07/29/18 07/29/18 Previous Rx's Medication Instructions Recorded Aspirin 81 mg PO DAILY #30 chew 01/08/18 Nicotine 14Mg/24Hr Patch [Habitrol] 1 patch TRANSDERM DAILY #30 patch 01/08/18 Nitroglycerin Sl Tabs [Nitrostat] 0.4 mg SUBLINGUAL Q5M PRN #253 tab 01/08/18 Allergies Allergy/AdvReac Type Severity Reaction Status Date / Time codeine Allergy Unknown Verified 07/29/18 18:25 Review of Systems ROS Statement: Those systems with pertinent positive or pertinent negative responses have been documented in the HPI. ROS Other: All systems not noted in ROS Statement are negative. EKG Findings - EKG Comments: EKG Findings:: EKG shows normal sinus rhythm rate of 63, OR 164, QRS 134, QTc 437 Past Medical History Past Medical History: Hyperlipidemia Additional Past Medical History / Comment(s): Hypothyroidism History of Any Multi-Drug Resistant Organisms: None Reported Past Surgical History: Heart Catheterization With Stent, Orthopedic Surgery Additional Past Surgical History / Comment(s): Heart Cath with stent to the mid RCA. Past Anesthesia/Blood Transfusion Reactions: No Reported Reaction Date of Last Stent Placement:: 01/07/2018 Past Psychological History: No Psychological Hx Reported Smoking Status: Current every day smoker Past Alcohol Use History: Occasional Past Drug Use History: None Reported - Past Family History Father Family Medical History: Cancer Mother Additional Family Medical History / Comment(s): at 68 yrs old from Alzheimers General Exam Limitations: no limitations General appearance: alert, in no apparent distress Head exam: Present: atraumatic, normocephalic, normal inspection Eye exam: Present: normal appearance, PERRL, EOMI. Absent: scleral icterus, conjunctival injection, periorbital swelling ENT exam: Present: normal exam, mucous membranes moist Neck exam: Present: normal inspection. Absent: tenderness, meningismus, lymphadenopathy Respiratory exam: Present: normal lung sounds bilaterally. Absent: respiratory distress, wheezes, rales, rhonchi, stridor Cardiovascular Exam: Present: regular rate, normal rhythm, normal heart sounds. Absent: systolic murmur, diastolic murmur, rubs, gallop, clicks GI/Abdominal exam: Present: soft, normal bowel sounds. Absent: distended, tenderness, guarding, rebound, rigid Extremities exam: Present: normal inspection, full ROM, normal capillary refill. Absent: tenderness, pedal edema, joint swelling, calf tenderness Back exam: Present: normal inspection Neurological exam: Present: alert, oriented X3, CN II-XII intact Psychiatric exam: Present: normal affect, normal mood Skin exam: Present: warm, dry, intact, normal color. Absent: rash Course Vital Signs 07/29/18 17:50 Temperature 97.4 F L Pulse Rate 74 Respiratory 18 Rate Blood Pressure 170/106 O2 Sat by Pulse 98 Oximetry - Reevaluation(s) Reevaluation #1: 07/29/18 19:54 Medical records reviewed Reevaluation #2: 07/29/18 19:54 Patient still does feel positive chest pain Chest Pain MDM - MDM 33 male the ER for evaluation chest pain. Patient be admitted for cardiac observation telemetry and anticoagulation Critical Care Time Critical Care Time: Yes Total Critical Care Time: 31 Disposition Clinical Impression: Unstable angina pectoris, Chest pain Disposition: ADMITTED IP TO THIS HOSP Condition: Undetermined Instructions (If sedation given, give patient instructions): Chest Pain (ED) Is patient prescribed a controlled substance at d/c from ED?: No Referrals: Rafi Perry MD [Primary Care Provider] - 1-2 days
[2018-07-29 18:37] LABS: Basophils % (A) 0 %; Eosinophils # (A) 0.2 k/uL (0-0.7); Eosinophils % (A) 2 %; HCT 50.7 % (39.0-53.0); HGB 16.6 gm/dL (13.0-17.5); Lymphocytes # (A) 1.4 k/uL (1.0-4.8); Lymphocytes % (A) 18 %; MCH 31.7 pg (25.0-35.0); MCHC 32.7 g/dL (31.0-37.0); MCV 96.7 fL (80.0-100.0); Mean Platelet Volume 6.4; Monocytes # (A) 0.5 k/uL (0-1.0); Monocytes % (A) 6 %; Neutrophils # (A) 5.6 k/uL (1.3-7.7); Neutrophils % (A) 72 %; Platelet Count 276 k/uL (150-450); RBC 5.25 m/uL (4.30-5.90); RDW 12.6 % (11.5-15.5); WBC 7.9 k/uL (3.8-10.6)
[2018-07-29 19:02] LABS: ALT 37 U/L (21-72); AST 28 U/L (17-59); Albumin 4.7 g/dL (3.5-5.0); Alkaline Phosphatase 65 U/L (38-126); Anion Gap 8 mmol/L; Blood Urea Nitrogen 12 mg/dL (9-20); Calcium 9.8 mg/dL (8.4-10.2); Carbon Dioxide 24 mmol/L (22-30); Chloride 110 mmol/L (98-107); Glucose 96 mg/dL (74-99); Lipase 171 U/L (23-300); Potassium 4.9 mmol/L (3.5-5.1); Sodium 142 mmol/L (137-145); Total Bilirubin 0.8 mg/dL (0.2-1.3); Total Protein 7.3 g/dL (6.3-8.2)
[2018-07-29 19:06] LABS: INR 0.9 (<1.2); Prothrombin Time 10.2 sec (9.0-12.0)
--- NOTE | 2018-07-29 19:31 | XR ---
EXAMINATION TYPE: XR chest 2V DATE OF EXAM: 07/29/2018 COMPARISON: NONE HISTORY: Chest tightness TECHNIQUE: Frontal and lateral views of the chest are obtained. FINDINGS: Heart and mediastinum are normal. Lungs are clear. Diaphragm is normal. Bony thorax is int act. IMPRESSION: Normal chest. No change.
[2018-07-29] MEDS ORDERED: HEPARIN SODIUM,PORCINE 5,000 UNIT/ML 1 ML VIAL IV PRN (19:51)
[2018-07-29] MEDS ORDERED: NITROGLYCERIN SL TABS 0.4 MG TAB SUBLINGUAL PRN (19:51)
[2018-07-29] MEDS ORDERED: HEPARIN SODIUM,PORCINE 5,000 UNIT/ML 1 ML VIAL IV ONE (19:51)
[2018-07-29] MEDS ORDERED: ASPIRIN 81 MG PO STA (19:51)
[2018-07-29] MEDS ORDERED: HEPARIN SOD,PORK IN 0.45% NACL 25,000 UNIT in 0.45% NACL 1 250ML.BAG IV SCH (20:00)
[2018-07-29 21:05] VITALS: RESP 18
[2018-07-30 07:46] LABS: Mean Platelet Volume 6.6; Platelet Count 230 k/uL (150-450)
[2018-07-30 08:21] LABS: Cholesterol 184 mg/dL (<200); HDL Cholesterol 35 mg/dL (40-60); LDL Cholesterol,Calculated 131 mg/dL (0-99); Triglycerides 91 mg/dL (<150)
[2018-07-30] MEDS ORDERED: ASPIRIN 325 MG TAB PO SCH (09:00)
[2018-07-30] MEDS ORDERED: CLOPIDOGREL 75 MG TAB PO SCH (09:00)
[2018-07-30] MEDS ORDERED: ASPIRIN 81 MG PO SCH (09:00)
[2018-07-30] MEDS ORDERED: EZETIMIBE 10 MG TAB PO SCH (09:00)
[2018-07-30] MEDS ORDERED: ATORVASTATIN 80 MG TAB PO SCH (09:00)
--- NOTE | 2018-07-30 10:41 | P.CRDCN ---
History of Present Illness History of present illness: This is a pleasant 53-year-old male past medical history significant for coronary artery disease status post recent angioplasty of the RCA, dyslipidemia and hypothyroidism. He also unfortunately continues to smoke. He follows in the office with Dr. Medina. We have asked to see him in consultation for symptoms of chest pain. He initially presented to the hospital in January with symptoms of chest discomfort and at that time suffered a non-ST elevated myocardial infarction. Cardiac catheterization obtained at that time revealed evidence of 80% stenosis of the RCA, 40% stenosis of the mid LAD and 50% stenosis of the circumflex artery. He underwent successful angioplasty of the RCA at that time and has been maintained on dual anti- platelet therapy. At that time an echocardiogram revealed preserved left ventricular systolic function. He states on Saturday he was doing some work at home on his boat and he started feeling acutely short of breath and lightheaded. He denies symptoms of chest discomfort at that time. He went in the house and sat down his symptoms however persisted so he took one sublingual nitroglycerin. His symptoms at that time seemed to improve. However throughout the course of the weekend he continued to have intermittent episodes of shortness of breath and felt generally weak and fatigued. Then yesterday he started feeling vague symptoms of chest discomfort in his chest. He states since he underwent stenting in January he has been suffering with severe anxiety. He was started on Valium for his primary care physician and this does seem to help his intermittent symptoms of chest discomfort. However yesterday combined with the shortness of breath and fatigue he came to the hospital for further evaluation of his chest heaviness. At the time of my exam he is seen sitting up in bed in no acute distress. He does continue to complain of very vague symptoms of soreness in the midsternal region. He denies active shortness of breath, dizziness, palpitations, nausea, vomiting or diaphoresis. EKG on admission reveals sinus mechanism with right bundle branch block pattern. Chest x-ray is negative for an acute cardiopulmonary process. Laboratory data reviewed, WBC 7.9, hemoglobin 16.6, platelets 230, sodium 142, potassium 4.9, creatinine 0.73, magnesium 2.0, cardiac enzymes negative 3, LDL 131, HDL 35 and TSH 2.14. Current cardiac medications include aspirin 81 mg daily, Plavix 75 mg daily, and atorvastatin 80 mg daily has been recommended however he states it causes severe muscle aches and he has stopped taking it shortly after his cardiac event. At the time of my exam: CONSTITUTIONAL: Denies fever. Denies chills. EYES: Denies blurred vision. Denies vision changes. Denies eye pain. EARS, NOSE, MOUTH & THROAT: Denies headache. Denies sore throat. Denies ear pain. CARDIOVASCULAR: Denies chest pain. Denies shortness of breath. Denies orthopnea. Denies PND. Denies palpitations. RESPIRATORY: Denies cough. GASTROINTESTINAL: Denies abdominal pain. Denies diarrhea. Denies constipation. Denies nausea. Denies vomiting. MUSCULOSKELETAL: Denies myalgias. INTEGUMENTARY: Denies pruitis. Denies rash. NEUROLOGIC: Denies numbness. Denies tingling. Denies weakness. PSYCHIATRIC: Denies anxiety. Denies depression. ENDOCRINE: Denies fatigue. Denies weight change. Denies polydipsia. Denies polyurina. GENITOURINARY: Denies burning, hematuria or urgency with micturation. HEMATOLOGIC: Denies history of anemia. Denies bleeding. Blood pressure 125/72 heart rate 54 afebrile maintaining oxygen saturation on room air GENERAL: This is a 53-year-old male in no apparent distress at the time of my examination. HEENT: Head is atraumatic, normocephalic. Pupils are equal, round. Sclerae anicteric. Conjunctivae are clear. Mucous membranes of the mouth are moist. Neck is supple. There is no jugular venous distention. No carotid bruit is heard. LUNGS: Clear to auscultation no wheezes, rales or rhonchi. No chest wall tenderness is noted on palpation or with deep breathing. HEART: Regular rate and rhythm without murmurs, rubs or gallops. S1 and S2 heard. ABDOMEN: Soft, nontender. Bowel sounds are heard. No organomegaly noted. EXTREMITIES: No evidence of peripheral edema and no calf tenderness noted. VASCULAR: Radial and dorsalis pedis pulses palpated, no evidence of clubbing. NEUROLOGIC: Patient is awake, alert and oriented x3. ASSESSMENT Symptoms suggestive of unstable angina History of coronary artery disease status post recent angioplasty of the RCA with known disease of the circumflex and LAD Dyslipidemia Hypothyroidism PLAN An acute coronary event has been ruled out, however his symptoms are concerning for angina. Films from previous catheterization were reviewed. We have recommended he undergo repeat catheterization to further asses the lesion in the LAD and possible FFR. However, the patient is declining this at this time. We have then suggested at minimum he undergo stress testing. He is agreeable for this with the understanding that if this is abnormal he will then require catheterization. Obtain Cardiolyte stress test and further recommendations to follows. Since he is intolerant to statins we will start him on zetia 10 mg daily and follow up on his lipid profile in 6-8 weeks. If his LDL continues to be elevated PKS9 inhibitor will then be considered. Repeat echocardiogram and doppler study to assess cardiac structure and function. Further recommendations to follow based on clinical course. Thank you kindly for this consultation. Nurse Practitioner note has been reviewed, I agree with a documented findings and plan of care. Patient was seen and examined. Past Medical History Past Medical History: Hyperlipidemia, Myocardial Infarction ([place]), Thyroid Disorder Additional Past Medical History / Comment(s): Hypothyroidism, [place] ( with stent 2018). Last Myocardial Infarction Date:: 01/2019 History of Any Multi-Drug Resistant Organisms: None Reported Past Surgical History: Heart Catheterization With Stent, Orthopedic Surgery Additional Past Surgical History / Comment(s): Heart Cath with stent to the mid RCA (01/2019). Past Anesthesia/Blood Transfusion Reactions: No Reported Reaction Date of Last Stent Placement:: 01/07/2018 Past Psychological History: No Psychological Hx Reported Smoking Status: Current every day smoker Past Alcohol Use History: None Reported, Occasional Past Drug Use History: None Reported - Past Family History Father History Unknown: Yes Family Medical History: Cancer Mother History Unknown: Yes Family Medical History: Dementia Additional Family Medical History / Comment(s): at 68 yrs old from Alzheimers Medications and Allergies Home Medications Medication Instructions Recorded Confirmed Type Aspirin 81 mg PO DAILY #30 chew 01/08/18 07/29/18 Rx Nicotine 14Mg/24Hr Patch [Habitrol] 1 patch TRANSDERM DAILY #30 patch 01/08/18 07/29/18 Rx Nitroglycerin Sl Tabs [Nitrostat] 0.4 mg SUBLINGUAL Q5M PRN #253 tab 01/08/18 Rx Clopidogrel [Plavix] 75 mg PO DAILY 07/29/18 07/29/18 History Levothyroxine Sodium [Synthroid] 150 mcg PO QAM 07/29/18 07/29/18 History Allergies Allergy/AdvReac Type Severity Reaction Status Date / Time codeine Allergy Unknown Verified 07/29/18 21:16 Physical Exam Vitals: Vital Signs Temp Pulse Pulse Pulse Resp BP BP 07/30/18 07:05 97.9 F 54 L 18 125/72 07/30/18 04:45 97.6 F 53 L 18 126/78 07/30/18 02:53 68 18 07/29/18 23:41 97.7 F 60 18 125/75 07/29/18 22:22 69 17 07/29/18 21:04 97.5 F L 64 18 129/78 07/29/18 20:43 97.6 F 62 16 139/87 07/29/18 20:04 17 07/29/18 19:58 60 16 139/87 07/29/18 19:51 62 16 07/29/18 17:50 97.4 F L 74 18 170/106 Pulse Ox 07/30/18 07:05 94 L 07/30/18 04:45 93 L 07/30/18 02:53 07/29/18 23:41 96 07/29/18 22:22 07/29/18 21:04 95 07/29/18 20:43 98 07/29/18 20:04 07/29/18 19:58 99 07/29/18 19:51 95 07/29/18 17:50 98 Intake and Output 07/29/18 07/30/18 07/30/18 22:59 06:59 14:59 Intake Total 61.167 Balance 61.167 Intake: Intake, IV Titration 61.167 Amount Heparin Sod,Pork in 0.45% 61.167 NaCl 25,000 unit In 0.45 % NaCl 1 250ml.bag @ 10. 807 UNITS/KG/HR 10 mls/hr IV .Q24H [facility] Rx#: [id number] Other: Voiding Method Toilet Toilet # Voids 1 1 Weight 92.533 kg Results 07/30/18 07:02 07/29/18 18:00 Cardiac Enzymes 07/29/18 07/29/18 07/30/18 Range/Units 18:00 18:00 01:15 AST 28 (17-59) U/L Troponin I <0.012 <0.012 (0.000-0.034) ng/mL Coagulation 07/29/18 07/30/18 Range/Units 18:00 01:15 PT 10.2 (9.0-12.0) sec APTT 25.0 43.0 H (22.0-30.0) sec CBC 07/29/18 07/30/18 Range/Units 18:00 07:02 WBC 7.9 (3.8-10.6) k/uL RBC 5.25 (4.30-5.90) m/uL Hgb 16.6 (13.0-17.5) gm/dL Hct 50.7 (39.0-53.0) % Plt Count 276 230 (150-450) k/uL Comprehensive Metabolic Panel 07/29/18 Range/Units 18:00 Sodium 142 (137-145) mmol/L Potassium 4.9 (3.5-5.1) mmol/L Chloride 110 H (98-107) mmol/L Carbon Dioxide 24 (22-30) mmol/L BUN 12 (9-20) mg/dL Creatinine 0.73 (0.66-1.25) mg/dL Glucose 96 (74-99) mg/dL Calcium 9.8 (8.4-10.2) mg/dL AST 28 (17-59) U/L ALT 37 (21-72) U/L Alkaline Phosphatase 65 (38-126) U/L Total Protein 7.3 (6.3-8.2) g/dL Albumin 4.7 (3.5-5.0) g/dL Current Medications Generic Name Dose Route Start Last Admin Trade Name Freq PRN Reason Stop Dose Admin Aspirin 325 mg 07/30/18 09:00 Aspirin PO DAILY [facility] Atorvastatin Calcium 80 mg 07/30/18 09:00 Lipitor PO DAILY [facility] Heparin Sodium (Porcine) 0 unit 07/29/18 19:51 Heparin IV Q6HR PRN Low PTT Protocol Heparin Sodium/Sodium Chloride 250 mls @ 10 mls/hr 07/29/18 20:00 07/30/18 02 :37 25,000 unit/ Sodium Chloride IV 12.75 units/kg/hr .Q24H [facility] 11.8 mls/hr Titration Protocol 10.807 UNITS/KG/HR Nitroglycerin 0.4 mg 07/29/18 19:51 Nitrostat SUBLINGUAL Q5M PRN Chest Pain Intake and Output 07/29/18 07/30/18 07/30/18 22:59 06:59 14:59 Intake Total 61.167 Balance 61.167 Intake: Intake, IV Titration 61.167 Amount Heparin Sod,Pork in 0.45% 61.167 NaCl 25,000 unit In 0.45 % NaCl 1 250ml.bag @ 10. 807 UNITS/KG/HR 10 mls/hr IV .Q24H [facility] Rx#: [id number] Other: Voiding Method Toilet Toilet # Voids 1 1 Weight 92.533 kg 07/30/18 07:02 07/29/18 18:00
[2018-07-30] MEDS ORDERED: REGADENOSON 0.4 MG/5 ML SYRINGE IV ONE (10:42)
[2018-07-30 11:48] VITALS: BP 131/85; PULSE 66; TEMP 97.4
--- NOTE | 2018-07-30 12:10 | NM ---
EXAMINATION TYPE: NM stress lexiscan cardiolite DATE OF EXAM: 07/30/2018 COMPARISON: NONE HISTORY: Chest pain TECHNIQUE: After the intravenous administration of 9.77 mCi Tc 99m Sestamibi - Cardiolite resting SP ECT images acquired 45 minutes post injection. The patient received 0.4mg Lexiscan, 25.2 mCi Tc 99m Sestamibi - Stress images obtained [address] injection FINDINGS: Review of stress and rest SPECT images demonstrates no distinct perfusion abnormality. Gated analysi s shows normal wall motion with an estimated left ventricular ejection fraction of 68 %. IMPRESSION: No scintigraphic evidence for reversible ischemia.
--- NOTE | 2018-07-30 13:54 | EST ---
EXERCISE STRESS AGE: 53 SEX: M HT: 6'2" WT: 204 PROTOCOL: Lexiscan Cardiolite Stress Test HEART RATE REST: 65 BLOOD PRESSURE REST: 120/67 MAXIMUM HEART RATE ACHIEVED: 183 MAXIMUM BLOOD PRESSURE: 130/70 INDICATIONS: Chest pain. CLINICAL INFORMATION: STRESS DATA: Pretesting physical examination showed a heart rate of 65, pressure is 120/67 mmHg. Baseline EKG showed sinus mechanism, 0.4 mg of Lexiscan given over 15 seconds per protocol. Max heart rate was 183 beats per minute. Maximum pressure was 130/70 mmHg. Clinically, the patient did not have any symptoms and the EKG did not show any significant changes. CONCLUSION: 1. Nondiagnostic electrocardiogram stress testing response to Lexiscan. 2. Please follow up on the Cardiolite portion on a separate report. MMODL / IJN: [id number] /
--- NOTE | 2018-07-30 15:36 | P.HPIM ---
History of Present Illness Combined H&P and discharge summary This is a pleasant 53 years old male with past medical history of hyperlipidemia , coronary artery disease status post stent, hypothyroidism, hip presents with 2 days duration of dyspnea, chest discomfort and episodes of dizziness. Patient symptoms all resolved on the day of discharge. He has already been evaluated by cardiology and have negative stress test. Cardiology team. The patient for discharge. Patient denies any other symptoms, so no chest pain, no dyspnea, no change in urine or bowel habits. No fever. Patient feels ready to be discharged home. Patient was started on Zetia because he could not tolerate Lipitor last time due to myalgia and. By his socially responsible investment adviser. Patient follow up with Dr. Medina in the office. Problems and management plan was discussed with the patient and he verbalized understanding and acceptance Patient was found stable and can be discharged home however he needs follow-up as an outpatient. Patient agrees to follow up with PCP and socially responsible investment adviser. Patient was instructed to follow up with his PCP Dr. Perry in 1 week and socially responsible investment adviser Dr. Medina in 1 week as well, and he agrees Review of systems CONSTITUTIONAL: No fever, no malaise, no fatigue. HEENT: No recent visual problems or hearing problems. Denied any sore throat. CARDIOVASCULAR: No orthopnea, PND, no palpitations, no syncope. PULMONARY: No shortness of breath, no cough, no hemoptysis. GASTROINTESTINAL: No diarrhea, no nausea, no vomiting, no abdominal pain. Normoactive bowel sounds. NEUROLOGICAL: No headaches, no weakness, no numbness. HEMATOLOGICAL: Denies any bleeding or petechiae. GENITOURINARY: Denies any burning micturition, frequency, or urgency. MUSCULOSKELETAL/RHEUMATOLOGICAL: Denies any joint pain, swelling, or any muscle pain. ENDOCRINE: Denies any polyuria or polydipsia. Medications: Aspirin, Plavix, Zetia, heparin, Synthroid, Nitrostat. Gen: patient is a AAOx3, no distress CVS: S1-S2, RRR, no murmur Lungs: B/L CTA, no wheezing Abdomen: soft, no distention, no tenderness, positive bowel sounds Extremity: no leg edema or induration Time spent more than 35 minutes Past Medical History Past Medical History: Hyperlipidemia, Myocardial Infarction ([place]), Thyroid Disorder Additional Past Medical History / Comment(s): Hypothyroidism, [place] ( with stent 2018). Last Myocardial Infarction Date:: 01/2019 History of Any Multi-Drug Resistant Organisms: None Reported Past Surgical History: Heart Catheterization With Stent, Orthopedic Surgery Additional Past Surgical History / Comment(s): Heart Cath with stent to the mid RCA (01/2019). Past Anesthesia/Blood Transfusion Reactions: No Reported Reaction Date of Last Stent Placement:: 01/07/2018 Past Psychological History: No Psychological Hx Reported Smoking Status: Current every day smoker Past Alcohol Use History: None Reported, Occasional Past Drug Use History: None Reported - Past Family History Father History Unknown: Yes Family Medical History: Cancer Mother History Unknown: Yes Family Medical History: Dementia Additional Family Medical History / Comment(s): at 68 yrs old from Alzheimers Medications and Allergies Home Medications Medication Instructions Recorded Confirmed Type Aspirin 81 mg PO DAILY #30 chew 01/08/18 07/29/18 Rx Nicotine 14Mg/24Hr Patch [Habitrol] 1 patch TRANSDERM DAILY #30 patch 01/08/18 07/29/18 Rx Nitroglycerin Sl Tabs [Nitrostat] 0.4 mg SUBLINGUAL Q5M PRN #253 tab 01/08/18 Rx Clopidogrel [Plavix] 75 mg PO DAILY 07/29/18 07/29/18 History Levothyroxine Sodium [Synthroid] 150 mcg PO QAM 07/29/18 07/29/18 History Ezetimibe [Zetia] 10 mg PO DAILY #90 tab 07/30/18 Rx Allergies Allergy/AdvReac Type Severity Reaction Status Date / Time codeine Allergy Unknown Verified 07/29/18 21:16 Physical Exam Vitals: Vital Signs Temp Pulse Pulse Pulse Resp BP BP 07/30/18 11:47 97.4 F L 66 18 131/85 07/30/18 07:05 97.9 F 54 L 18 125/72 07/30/18 04:45 97.6 F 53 L 18 126/78 07/30/18 02:53 68 18 07/29/18 23:41 97.7 F 60 18 125/75 07/29/18 22:22 69 17 07/29/18 21:04 97.5 F L 64 18 129/78 07/29/18 20:43 97.6 F 62 16 139/87 07/29/18 20:04 17 07/29/18 19:58 60 16 139/87 07/29/18 19:51 62 16 07/29/18 17:50 97.4 F L 74 18 170/106 Pulse Ox 07/30/18 11:47 95 07/30/18 07:05 94 L 07/30/18 04:45 93 L 07/30/18 02:53 07/29/18 23:41 96 07/29/18 22:22 07/29/18 21:04 95 07/29/18 20:43 98 07/29/18 20:04 07/29/18 19:58 99 07/29/18 19:51 95 07/29/18 17:50 98 Intake and Output 07/30/18 07/30/18 07/30/18 06:59 14:59 22:59 Intake Total 61.167 236 Balance 61.167 236 Intake: Intake, IV Titration 61.167 Amount Heparin Sod,Pork in 0.45% 61.167 NaCl 25,000 unit In 0.45 % NaCl 1 250ml.bag @ 10. 807 UNITS/KG/HR 10 mls/hr IV .Q24H [facility] Rx#: [id number] Oral 236 Other: Voiding Method Toilet # Voids 1 Weight 92.533 kg Results CBC & Chem 7: 07/30/18 07:02 07/29/18 18:00 Labs: Abnormal Lab Results - Last 24 Hours (Table) 07/29/18 07/30/18 07/30/18 Range/Units 18:00 01:15 07:02 APTT 43.0 H (22.0-30.0) sec Chloride 110 H (98-107) mmol/L LDL Cholesterol, Calc 131 H (0-99) mg/dL HDL Cholesterol 35 L (40-60) mg/dL Thrombosis Risk Factor Assmnt - Choose All That Apply Any of the Below Risk Factors Present?: Yes Each Factor Represents 1 point: Age 41-60 years Other Risk Factors: No Other congenital or acquired thrombophilia - If yes, enter type in comment: No Thrombosis Risk Factor Assessment Total Risk Factor Score: 1 Thrombosis Risk Factor Assessment Level: Low Risk
--- NOTE | 2018-07-30 16:35 | ECHOF ---
Referral Reason: MEASUREMENTS -------- HEIGHT: 188.0 cm WEIGHT: 92.5 kg BP: 125/72 RVIDd: 2.8 cm (< 3.3) IVSd: 1.0 cm (0.6 - 1.1) LVIDd: 4.0 cm (3.9 - 5.3) LVPWd: 1.1 cm (0.6 - 1.1) IVSs: 1.5 cm LVIDs: 2.7 cm LVPWs: 1.5 cm Ao Diam: 3.5 cm (2.0 - 3.7) AV Cusp: 2.3 cm (1.5 - 2.6) LA Diam: 2.1 cm (2.7 - 3.8) EPSS: 0.3 cm MV E Luis E: 0.68 m/s MV DecT: 323 ms MV A Luis E: 0.53 m/s MV E/A Ratio: 1.29 RAP: 5.00 mmHg RVSP: 24.63 mmHg MV EF SLOPE: 86.93 mm/s (70 - 150) MV EXCURSION: 2.16 cm (> 18.000) FINDINGS -------- Sinus rhythm. This was a technically adequate study. The left ventricular size is normal. Left ventricular wall thickness is normal. Overall left vent ricular systolic function is normal with, an EF between 55 - 60 %. The right ventricle is normal in size and function. Normal LA size by volume 22+/-6 ml/m2. The right atrium is normal in size. Aortic valve is trileaflet and is mildly thickened. There is no evidence of aortic regurgitation. There is no evidence of aortic stenosis. The mitral valve leaflets are mildly thickened. There is trace to mild mitral regurgitation. Trace tricuspid regurgitation present. Right ventricular systolic pressure is normal at < 35 mmHg. There is no evidence of pulmonary hypertension. Trace/mild (physiologic) pulmonic regurgitation. The aortic root is mildy dilated up to 4.0 cm. Normal inferior vena cava with normal inspiratory collapse consistent with estimated right atrial pre ssure of 5 mmHg. There is no pericardial effusion. CONCLUSIONS -------- 1. Sinus rhythm. 2. This was a technically adequate study. 3. The left ventricular size is normal. 4. Left ventricular wall thickness is normal. 5. Overall left ventricular systolic function is normal with, an EF between 55 - 60 %. 6. Normal LA size by volume 22+/-6 ml/m2. 7. Aortic valve is trileaflet and is mildly thickened. 8. The mitral valve leaflets are mildly thickened. 9. There is trace to mild mitral regurgitation. 10. Trace tricuspid regurgitation present. 11. Right ventricular systolic pressure is normal at < 35 mmHg. 12. There is no evidence of pulmonary hypertension. 13. Trace/mild (physiologic) pulmonic regurgitation. 14. The aortic root is mildy dilated up to 4.0 cm. 15. There is no pericardial effusion. INSTRUMENT LENS GRINDER: Alcides Pugh RDCS
[2018-07-31] MEDS ORDERED: LEVOTHYROXINE 75 MCG TAB PO SCH (06:30)
== END 2018-07-30 16:20 | disposition home or self-care (01) ==
LOC: EC 17:43 → 1SOBS 19:54
PROVIDERS: ADMIT Hospitalist; ATTEND Hospitalist
DX: R07.89 Other chest pain (principal); R06.00 Dyspnea, unspecified; R06.02 Shortness of breath; R53.83 Other fatigue; R53.1 Weakness; R42 Dizziness and giddiness; F41.9 Anxiety disorder, unspecified; E78.5 Hyperlipidemia, unspecified; I25.10 Atherosclerotic heart disease of native coronary artery without angina pectoris; E03.9 Hypothyroidism, unspecified; I25.2 Old myocardial infarction; F17.200 Nicotine dependence, unspecified, uncomplicated; Z95.5 Presence of coronary angioplasty implant and graft; Z80.9 Family history of malignant neoplasm, unspecified; Z81.8 Family history of other mental and behavioral disorders; Z82.0 Family history of epilepsy and other diseases of the nervous system; Z79.82 Long term (current) use of aspirin; Z79.02 Long term (current) use of antithrombotics/antiplatelets; Z79.890 Hormone replacement therapy; Z79.899 Other long term (current) drug therapy; Z88.5 Allergy status to narcotic agent
CPT/HCPCS: 96366 ×2; 96376; 96365; 99291; 36415; 93005; 93017; 93306; 83880; 80061; 80053; 84443; 83690; 83735; 84484 ×2; 85025; 85049; 85610; 85730 ×2; 71046; 78452; G0378 ×2; A9500; J1644 ×2; J2785

== ENCOUNTER 2023-03-29 21:08 | Inpatient (IN) | payer OTHER ==
[2023-03-29] MEDS ORDERED: IV FLUID CONTINUATION 1,000 ML IV ONE (21:21)
[2023-03-29] MEDS ORDERED: HEPARIN SODIUM 1,000 UN/ML (10ML VL) ONE (21:27)
[2023-03-29] MEDS ORDERED: fentaNYL (PF) 50 MCG/ML 2 ML AMP ONE (21:27)
[2023-03-29] MEDS ORDERED: LIDOCAINE 1% INJ 10MG/ML (20 ML MDV) ONE (21:27)
[2023-03-29] MEDS ORDERED: VERAPAMIL 2.5 MG/ML 2 ML AMP ONE (21:27)
[2023-03-29] MEDS ORDERED: fentaNYL (PF) 50 MCG/1 ML VIAL IVP ONE (21:36)
[2023-03-29] MEDS ORDERED: LIDOCAINE 1% INJ 10MG/ML (20 ML MDV) SQ ONE (21:38)
[2023-03-29] MEDS ORDERED: VERAPAMIL SYRINGE (5 MG/10 ML) INTRAARTER ONE (21:40)
[2023-03-29] MEDS ORDERED: CLOPIDOGREL 75 MG TAB ONE (21:46)
[2023-03-29] MEDS ORDERED: HEPARIN SODIUM 1,000 UN/ML (10ML VL) IV ONE (21:47)
[2023-03-29] MEDS ORDERED: CLOPIDOGREL 75 MG TAB PO ONE (21:47)
[2023-03-29] MEDS ORDERED: IOPAMIDOL-370 200ML BTL INJ ONE (22:18)
[2023-03-29] MEDS ORDERED: ATROPINE SULFATE 0.1 MG/ML 10ML SYRINGE IV PRN (22:33)
[2023-03-29] MEDS ORDERED: RX INFO: IV CONTRAST WAS GIVEN 1 EACH MISC MISCELLANE PRN (22:33)
[2023-03-29] MEDS ORDERED: NITROGLYCERIN SL TABS 0.4 MG TAB SUBLINGUAL PRN (22:33)
[2023-03-29] MEDS ORDERED: MAG HYDROX/AL HYDROX/SIMETH 30 ML CUP PO PRN (22:33)
[2023-03-29] MEDS ORDERED: ZOLPIDEM 5 MG TAB PO PRN (22:33)
--- NOTE | 2023-03-29 22:41 | P.CRDCN ---
History of Present Illness Consult date: 03/29/23 History of present illness: History of Present Illness: The patient is a 58-year-old male was transferred from the emergency room of [facility] with an acute inferior wall myocardial infarction. He has a known history of CAD, status post stenting of the RCA 2017 and moderate disease in the LAD and left circumflex who presented to the emergency room with an acute chest discomfort and was found to have ST segment elevation inferiorly. He received TNKase with improvement in his symptoms and was transferred for further evaluation. At the time of presentation his pain has almost resolved completely and there was improvement in his EKG changes. According to him he had some discomfort yesterday and subsequently today but that was the first time he has significant pain since his intervention in 2018. He denies any PND, orthopnea or peripheral edema. He has no dizziness, palpitations or syncope. He has a history of chronic tobacco use, hyperlipidemia but he is nondiabetic. He has myalgia from statin. Medications: Aspirin, levothyroxine, Wellbutrin, Ezetimibe 10 mg daily Review of Systems: Respiratory: No history of asthma, bronchitis or recent cough. GI: No nausea or vomiting . No history of peptic ulcer disease. No recent GI bleed. : No hematuria or dysuria. Nervous System: No stroke or seizure. Physical Examination: 58-year-old male, evaluated in the cardiac catheterization laboratory, awake and alert with no significant pain ,Blood pressure 120/70, Heart rate 70 Head: Normocephalic. Eyes: Sclerae nonicteric. Neck: Good carotid upstroke, no bruit, no jugular venous distention. Lungs: Clear to auscultation. Heart: Regular rate and rhythm, S1-S2, no S3, no rub. No murmur. Abdomen: Soft nontender, positive bowel sounds no organomegaly. Extremities: No edema, intact distal pulses. Labs: Potassium 3.9, BUN 15, creatinine 1.1. Troponin 0.172. Hemoglobin 15.6 EKG: Sinus mechanism with right bundle branch block and ST segment elevation inferiorly consistent with acute inferior wall myocardial infarction Impression: 1. Acute inferior STEMI 2. Prior history of stenting of the RCA in 2018 3. Chronic tobacco use 4. Hyperlipidemia Plan: 1. Have recommended to proceed with emergent cardiac catheterization to evaluate his anatomy and guide his treatment 2. Smoking cessation 3. Obtain an echocardiogram with Doppler 4. Start statin and if he has significant myalgia consider [id number] 5. Depending on his progress further recommendations will be made, thank you for this consult we will follow with you. Past Medical History Past Medical History: Hyperlipidemia, Myocardial Infarction ([place]), Thyroid Disorder Additional Past Medical History / Comment(s): Hypothyroidism, [place] ( with stent 01/2019). Last Myocardial Infarction Date:: 01/2019 History of Any Multi-Drug Resistant Organisms: None Reported Past Surgical History: Heart Catheterization With Stent, Orthopedic Surgery Additional Past Surgical History / Comment(s): Heart Cath with stent to the mid RCA (01/2019). Past Anesthesia/Blood Transfusion Reactions: No Reported Reaction Date of Last Stent Placement:: 01/07/2018 Past Psychological History: No Psychological Hx Reported Past Alcohol Use History: None Reported, Occasional Past Drug Use History: None Reported - Past Family History Father History Unknown: Yes Family Medical History: Cancer Mother History Unknown: Yes Family Medical History: Dementia Additional Family Medical History / Comment(s): at 68 yrs old from Alzheimers Medications and Allergies Home Medications Medication Instructions Recorded Confirmed Type Levothyroxine Sodium [Synthroid] 150 mcg PO DAILY 07/29/18 03/29/23 History Ezetimibe [Zetia] 10 mg PO DAILY #90 tab 07/30/18 03/29/23 Rx Aspirin EC [Ecotrin Low Dose] 81 mg PO DAILY 03/29/23 03/29/23 History buPROPion SR [Wellbutrin SR] 150 mg PO DAILY 03/29/23 03/29/23 History buPROPion SR [Wellbutrin SR] 150 mg PO HS PRN 03/29/23 03/29/23 History Allergies Allergy/AdvReac Type Severity Reaction Status Date / Time codeine Allergy Lethargic Verified 03/29/23 21:31 Physical Exam Vitals: Intake and Output 03/29/23 03/29/23 03/29/23 06:59 14:59 22:59 Intake Total 500 Balance 500 Intake: IV 500 Other: Weight 97.522 kg Results Intake and Output 03/29/23 03/29/23 03/29/23 06:59 14:59 22:59 Intake Total 500 Balance 500 Intake: IV 500 Other: Weight 97.522 kg Patient Weight 03/30/23 06:59 Weight 97.522 kg
[2023-03-29] MEDS ORDERED: SODIUM CHLORIDE 0.9% 1,000 ML in EMPTY BAG 1 BAG IV SCH (22:45)
[2023-03-29 22:46] LABS: Glucose,Whole Blood 107 mg/dL (70-110)
--- NOTE | 2023-03-29 22:49 | P.CARDCATH ---
Date of Procedure: 03/29/23 Description of Procedure: Cardiac Catheterization: The patient is a 58-year-old male with a known history of CAD who presented with acute inferior STEMI, received TNKase and was transferred for further evaluation. Recommendations were made regarding cardiac catheterization, the risks and the complications were discussed with the patient who is in full understanding and agreement. Procedure Description: Patient was brought to cath laboratory technician in fasting semi-sedated state after receiving Fentanyl and Benadryl achieiving moderate conscious sedated state. Using Xylocaine Anesthesia and modified Seldinger technique, a 6-Anguillan sheath was introduced in the right radial artery . Subsequently, selective coronary angiography was performed using a 6-Anguillan 0.75 AL guiding catheter and 5-Anguillan 3.5 bend left Dahlai catheter. Multiple views of the coronary artery including hemiaxial views were obtained. The guiding catheter was used to cross the aortic valve and LVEDP was calculated. PCI: After obtaining images of the right coronary system with the guiding catheter a 0.014 BMW J-wire was advanced and positioned in the distal RCA, subsequently 3.0 x 12 mm NC Treck balloon was advanced and 2 inflations up to 8 esperanza were done. After removing the balloon a [employer] karuk eye IVUS catheter was introduced and revealed good apposition of the previous stent, after removing the catheter a 3.5 x 15 mm Xience gaby point stent was deployed at 16 esperanza. Repeat IVUS imaging was performed and subsequently a 3.75 x 15 mm NC Treck balloon was advanced and one inflation at 12 esperanza was done. Subsequently the wire was withdrawn and the guiding catheter and images were obtained that revealed successful stenting. Fo llowing that, catheter and sheath were removed. Hemostasis was obtained with deployment of vascular band . There was no immediate complication. Patient was returned to room in stable condition. Of note, the patient received a total of 6000 units of intravenous heparin as well as intra-arterial verapamil. He received an oral loading dose of clopidogrel and his ACT was monitored. He had no chest discomfort or significant EKG at the end of the procedure Findings: Left main: This is a large-size vessel, bifurcating into LAD and circumflex, the left main has no obstructive disease LAD: This is a large-size vessel, reaching to the apex with a wraparound apex segment giving rise to 2 diagonal branch. The LAD has [id number] diffuse intimal disease in the midsegment of 30-40% with no high-grade stenosis Left circumflex: This is a large nondominant vessel giving rise to 2 large obtuse marginal branch that have mild intimal disease of 20-30% RCA: This is a large dominant vessel, bifurcating distally into PDA and PLV. The midright coronary artery has a stent that has a 99% stenosis in the middle of the stent, the rest of the vessel has no high-grade stenosis Left Ventriculogram: Not performed Hemodynamics: There was no gradient across the aortic valve, LVEDP was 14-16 mmHg Conclusion: 1. Critical stenosis in the mid RCA 2. Eses-ed-hpobtesw disease in the LAD and left circumflex 3. Successful stenting of the mid RCA with intravascular ultrasound imaging with reduction of stenosis from 99% to 0% 4. Right dominance Recommendations: The patient will continue on aspirin and Plavix without any interruption for 12 months in addition to aggressive coronary risks modification an attempt to maintain LDL below 70 mg/dL. The findings and the recommendations were discussed with the patient and the family and they were in full understanding and agreement. Duration of sedation is 40 minutes.
--- NOTE | 2023-03-30 00:31 | P.HPIM ---
History of Present Illness H&P Date: 03/30/23 Patient is a 58-year-old male with a PMH of CAD status post 1 stent, hypothyroidism, and hyperlipidemia who was transferred from [facility] for an acute ST elevation [place]. Patient reports he had been having intermittent substernal chest discomfort over the past 1-2 days which worsened at around 6 PM. He reported experiencing associated palpitations, diaphoresis, and some dizziness. A code ST elevation [place] was activated and the patient was taken to the [facility] for catheterization via right radial approach. Critical stenosis of the RCA was noted and a stent was deployed. He reported resolution of his pain at the time of interview postoperatively. Reported feeling at his baseline. Denied further chest discomfort, shortness of breath, fever, chills, cough, nausea, vomiting, abdominal pain, diarrhea. Laboratory evaluation from [facility] was reviewed with troponin 0.172, WBC 12.23, hemoglobin 15.6, platelets 254, sodium 139, potassium 3.9, glucose 72, magnesium 2.2 with proBNP 68. EKG revealed ST elevations in the inferior leads diffusely at 66 bpm as reviewed by me. ED documentation reviewed and case discussed with ED provider. Review of systems: Pertinent positives and negatives as discussed in HPI, a complete review of systems was performed and all other systems are negative. Physical examination: Vital signs reviewed General: non toxic, no distress, appears at stated age, overweight Derm: no unusual rashes/lesions, warm Head: atraumatic, normocephalic, symmetric Eyes: EOMI, no lid lag, anicteric sclera, pupils equal round reactive to light ENT: Nose and ears atraumatic Neck: No cervical lymphadenopathy, trachea midline, supple Mouth: no lip lesion, mucus membranes moist Cardiovascular: S1S2 reg, no murmur, positive dorsalis pedis pulse bilateral, no edema Lungs: CTA bilateral, no rhonchi, no rales, no accessory muscle use Abdominal: soft, nontender to palpation, no guarding Ext: muscle strength 5 out of 5 in all 4 extremities grossly, no gross muscle atrophy, no contractures, right TR band in place Neuro: CN II-XI grossly intact, no gross focal neuro deficits Psych: Alert, oriented, appropriate affect Assessment: Acute ST elevation [place] status post RCA stent Chronic conditions: Hypothyroidism, hyperlipidemia Imaging: EKG revealed ST elevations in the inferior leads diffusely at 66 bpm as reviewed by me. Data Review: Laboratory evaluation from [facility] was reviewed with troponin 0.172, WBC 12.23, hemoglobin 15.6, platelets 254, sodium 139, potassium 3.9, glucose 72, magnesium 2.2 with proBNP 68. Plan: Cardiology recommendations appreciated Continue with aspirin and Plavix Echocardiogram ordered Continue the following home medications: -Synthroid 150 g by mouth daily -Zetia 10 mg by mouth daily Cardiac monitoring DVT prophylaxis: Lovenox Subq The patient is admitted with an anticipated greater than 2 midnight stay for evaluation of STEMI CODE STATUS: Full Code Discussed with: Patient Anticipated discharge place: Home Past Medical History Past Medical History: Hyperlipidemia, Myocardial Infarction ([place]), Thyroid Disorder Additional Past Medical History / Comment(s): Hypothyroidism, [place] ( with stent 01/2019). Last Myocardial Infarction Date:: 01/2019 History of Any Multi-Drug Resistant Organisms: None Reported Past Surgical History: Heart Catheterization With Stent, Orthopedic Surgery Additional Past Surgical History / Comment(s): Heart Cath with stent to the mid RCA (01/2019). Past Anesthesia/Blood Transfusion Reactions: No Reported Reaction Date of Last Stent Placement:: 01/07/2018 Past Psychological History: No Psychological Hx Reported Past Alcohol Use History: None Reported, Occasional Past Drug Use History: None Reported - Past Family History Father History Unknown: Yes Family Medical History: Cancer Mother History Unknown: Yes Family Medical History: Dementia Additional Family Medical History / Comment(s): at 68 yrs old from Alzheimers Medications and Allergies Home Medications Medication Instructions Recorded Confirmed Type Levothyroxine Sodium [Synthroid] 150 mcg PO DAILY 07/29/18 03/29/23 History Ezetimibe [Zetia] 10 mg PO DAILY #90 tab 07/30/18 03/29/23 Rx Aspirin EC [Ecotrin Low Dose] 81 mg PO DAILY 03/29/23 03/29/23 History buPROPion SR [Wellbutrin SR] 150 mg PO DAILY 03/29/23 03/29/23 History buPROPion SR [Wellbutrin SR] 150 mg PO HS PRN 03/29/23 03/29/23 History Allergies Allergy/AdvReac Type Severity Reaction Status Date / Time codeine Allergy Lethargic Verified 03/29/23 21:31 Physical Exam Vitals: Vital Signs Temp Pulse Resp BP Pulse Ox 03/30/23 00:15 53 L 19 95 03/30/23 00:00 98.1 F 53 L 22 100/57 94 L 03/29/23 23:45 49 L 29 H 94 L 03/29/23 23:30 51 L 24 93 L 03/29/23 23:15 53 L 24 95 03/29/23 23:00 53 L 18 113/80 96 03/29/23 22:50 50 L 19 96 Intake and Output 03/29/23 03/29/23 03/30/23 14:59 22:59 06:59 Intake Total 500 200 Balance 500 200 Intake: IV 500 200 Sodium Chloride 0.9% 1, 200 000 ml In Empty Bag 1 bag @ 1 ML/KG/HR 97.522 mls/ hr IV .[id number] [facility] Rx#: [id number] Other: Voiding Method Urinal Weight 97.522 kg Thrombosis Risk Factor Assmnt - Choose All That Apply Any of the Below Risk Factors Present?: Yes Each Factor Represents 1 point: Acute [place], Age 41-60 years Other Risk Factors: No Thrombosis Risk Factor Assessment Total Risk Factor Score: 2 Thrombosis Risk Factor Assessment Level: Low Risk
[2023-03-30 05:01] LABS: African American GFR (CKD) >90 (>60 ml/min/1.73 sqM); Anion Gap 8 mmol/L; Blood Urea Nitrogen 17 mg/dL (9-20); Calcium 8.2 mg/dL (8.4-10.2); Carbon Dioxide 19 mmol/L (22-30); Chloride 111 mmol/L (98-107); Glucose 95 mg/dL (74-99); Non-African American GFR(CKD) >90 (>60 ml/min/1.73 sqM); Potassium 4.2 mmol/L (3.5-5.1); Sodium 138 mmol/L (137-145)
[2023-03-30] MEDS ORDERED: LORATADINE 10 MG TAB PO PRN (08:36)
[2023-03-30] MEDS: ASPIRIN 81 MG PO SCH (08:45)
[2023-03-30] MEDS: ENOXAPARIN 40 MG/0.4 ML SYRINGE SQ SCH (08:45)
[2023-03-30] MEDS: LEVOTHYROXINE 75 MCG TAB PO SCH (08:45)
[2023-03-30] MEDS: CLOPIDOGREL 75 MG TAB PO SCH (08:45)
[2023-03-30] MEDS: buPROPion SR 150 MG TABLET.ER PO SCH (08:47)
[2023-03-30] MEDS: EZETIMIBE 10 MG TAB PO SCH (08:47)
[2023-03-30 08:48] LABS: HCT 42.4 % (39.0-53.0); HGB 14.3 gm/dL (13.0-17.5); MCH 33.1 pg (25.0-35.0); MCHC 33.8 g/dL (31.0-37.0); MCV 97.8 fL (80.0-100.0); Platelet Count 220 k/uL (150-450); RBC 4.33 m/uL (4.30-5.90); WBC 8.2 k/uL (3.8-10.6)
[2023-03-30] MEDS ORDERED: METOPROLOL TARTRATE 25 MG TAB PO SCH (09:00)
[2023-03-30] MEDS: FLUTICASONE 50MCG/SPRAY NASAL 16GM EA NOSTRIL SCH (09:04)
[2023-03-30 10:20] LABS: LDL Cholesterol,Calculated 104.9 mg/dL (0.0-131.0)
--- NOTE | 2023-03-30 11:49 | CA ---
Transthoracic Echo Report Name: Jerel Hardy Age: 58 Gender: M : 1965 Exam Date: 03/30/2023 09:09 Exam Location: [facility] Ht (in): 74 Wt (lb): 215 Ordering Physician: Bernarda Ott MD Attending/Referring Phys: Cub Reporter Procedure CPT: Indications: IL Cardiac Hx: Technical Quality: Fair Contrast 1: Total Dose (mL): Contrast 2: Total Dose (mL): MEASUREMENTS (Male / Female) Normal Values 2D ECHO LV Diastolic Diameter PLAX 4.7 cm 4.2 - 5.9 / 3.9 - 5.3 cm LV Systolic Diameter PLAX 2.7 cm IVS Diastolic Thickness 1.0 cm 0.6 - 1.0 / 0.6 - 0.9 cm LVPW Diastolic Thickness 1.1 cm 0.6 - 1.0 / 0.6 - 0.9 cm LV Relative Wall Thickness 0.5 LVOT Diameter 2.2 cm Ascending Aorta Diameter 4.0 cm M-MODE Aortic Root Diameter MM 3.7 cm LA Systolic Diameter MM 3.6 cm LA Ao Ratio MM 1.0 AV Cusp Separation MM 2.4 cm DOPPLER AV Peak Velocity 134.6 cm/s AV Peak Gradient 7.2 mmHg AV Mean Velocity 96.0 cm/s AV Mean Gradient 4.1 mmHg AV Velocity Time Integral 28.4 cm LVOT Peak Velocity 106.0 cm/s LVOT Peak Gradient 4.5 mmHg LVOT Velocity Time Integral 25.2 cm LVOT Stroke Volume 96.7 cm??? LVOT Stroke Volume Index 43.1 ml/m??? LVOT Cardiac Index 2512.3 cm???/min???m??? AV Area Cont Eq vti 3.4 cm??? AV Area Cont Eq pk 3.0 cm??? Mitral E Point Velocity 70.1 cm/s Mitral A Point Velocity 61.2 cm/s Mitral E to A Ratio 1.1 MV Deceleration Time 251.8 ms LV E' Lateral Velocity 10.2 cm/s Mitral E to LV E' Lateral Ratio 6.9 LV E' Septal Velocity 10.7 cm/s Mitral E to LV E' Septal Ratio 6.6 TR Peak Velocity 232.0 cm/s TR Peak Gradient 21.5 mmHg Right Atrial Pressure 3.0 mmHg Pulmonary Artery Systolic Pressu 24.5 mmHg Right Ventricular Systolic Press 24.5 mmHg FINDINGS Left Ventricle Left ventricular wall thickness normal. Left ventricular cavity size normal. Normal left ventricular systolic function with no obvious regional wall motion abnormalities. Left ventricular ejection fraction is estimated at 60-65%. Right Ventricle Borderline right ventricular dilatation. Right Atrium Mild right atrial dilatation. Left Atrium Normal left atrial size. Mitral Valve Structurally normal mitral valve. No mitral regurgitation. Aortic Valve Trileaflet aortic valve. No aortic valve stenosis or regurgitation. Tricuspid Valve Structurally normal tricuspid valve. Trace tricuspid regurgitation. Pulmonic Valve Pulmonic valve not well visualized. Pericardium No pericardial effusion. Aorta Mild aortic dilatation at the level of the sinuses of valsalva (root). Mild aortic dilatation at the level of the sinotubular junction. Mildly dilated proximal ascending aorta (tube). CONCLUSIONS Left ventricular ejection fraction 55-60% Normal left ventricular wall thickness No mitral regurgitation Mild aortic root dilation Previewed by: Dr. Paulo Guerra DO (Electronically Signed) Final Date: 30 March 2023 11:48
[2023-03-30 13:49] VITALS: BMI 29.5
[2023-03-30] MEDS: LOSARTAN 25 MG TAB PO SCH (14:21)
--- NOTE | 2023-03-30 16:08 | P.PN ---
Subjective History of Present Illness: The patient is a 58-year-old male was transferred from the emergency room of [facility] with an acute inferior wall myocardial infarction. He has a known history of CAD, status post stenting of the RCA 2017 and moderate disease in the LAD and left circumflex who presented to the emergency room with an acute chest discomfort and was found to have ST segment elevation inferiorly. He received TNKase with improvement in his symptoms and was transferred for further evaluation. At the time of presentation his pain has almost resolved completely and there was improvement in his EKG changes. According to him he had some discomfort yesterday and subsequently today but that was the first time he has significant pain since his intervention in 2018. He denies any PND, orthopnea or peripheral edema. He has no dizziness, palpitations or syncope. He has a history of chronic tobacco use, hyperlipidemia but he is nondiabetic. He has myalgia from statin. Medications: Aspirin, levothyroxine, Wellbutrin, Ezetimibe 10 mg daily 03/30 Patient seen and examined. Patient underwent left heart catheterization yesterday with stenting of the RCA and otherwise mild disease on the left. He denies any further chest pain. Echocardiogram performed which shows EF 60%. He does have mild asymptomatic bradycardia with heart rates in the 50s. Additionally blood pressure mildly elevated and losartan was added. Physical Examination: 58-year-old male, evaluated in the cardiac catheterization laboratory, awake and alert with no significant pain ,Blood pressure 120/70, Heart rate 70 Head: Normocephalic. Eyes: Sclerae nonicteric. Neck: Good carotid upstroke, no bruit, no jugular venous distention. Lungs: Clear to auscultation. Heart: Regular rate and rhythm, S1-S2, no S3, no rub. No murmur. Abdomen: Soft nontender, positive bowel sounds no organomegaly. Extremities: No edema, intact distal pulses. Impression: 1. Acute inferior STEMI, s/p PCI RCA 2. Prior history of stenting of the RCA in 2018 3. Chronic tobacco use 4. Hyperlipidemia 5. Hypertension 6. Asymptomatic sinus bradycardia Plan: Discussed tobacco cessation. Echocardiogram shows preserved EF. Continue with dual antiplatelets. Abele Elias and may need to increase pending blood pressure response. Hold parameters on beta nakia however he is asymptomatic from the bradycardia. Likely discharge in 24 hours if remains stable Objective - Vital Signs Vital signs: Vital Signs Temp 98 F 03/30/23 12:00 Pulse 54 L 03/30/23 15:00 Resp 16 03/30/23 15:00 BP 138/96 03/30/23 15:00 Pulse Ox 95 03/30/23 15:00 FiO2 Intake & Output 03/29/23 03/30/23 03/30/23 18:59 06:59 18:59 Intake Total 900 490 Output Total 500 600 Balance 400 -110 Weight 104.1 kg 104.1 kg Intake: IV 900 Sodium Chloride 0.9% 1, 400 000 ml In Empty Bag 1 bag @ 1 ML/KG/HR 97.522 mls/ hr IV .[id number] [facility] Rx#: [id number] Oral 490 Output: Urine 500 600 Other: Voiding Method Urinal Toilet Urinal # Voids 0 1 - Labs CBC & Chem 7: 03/30/23 03:34 03/30/23 03:34 Labs: Abnormal Lab Results - Last 24 Hours (Table) 03/30/23 Range/Units 03:34 Chloride 111 H (98-107) mmol/L Carbon Dioxide 19 L (22-30) mmol/L Calcium 8.2 L (8.4-10.2) mg/dL Triglycerides 243.00 H (0.00-149.00) mg/dL VLDL Cholesterol, Calc 48.60 H (5.00-40.00) mg/dL HDL Cholesterol 29.50 L (40.00-60.00) mg/dL
--- NOTE | 2023-03-30 16:54 | P.PN ---
Subjective Progress Note Date: 03/30/23 (seen at 0915) Patient is a 58-year-old male with prior myocardial infarction, hypertension, dyslipidemia, and hypothyroidism who presented to an outside hospital with complaints of chest pain. He was transferred here and underwent emergent cardiac catheterization with stenting of the RCA. He was subsequently admitted to the ICU. He was started on aspirin and Plavix. Patient seen and examined at bedside. He denies any additional chest pain or shortness of breath. He is feeling okay right now. He does report a significant history of myopathies and weakness associated with statin therapy. He has tried 4 different statins. He is worried about going back on statin therapy but is willing to take a few doses were waiting for cardiology determination. He also complains of a sinus headache as well as nasal congestion Vital signs reviewed General: nontoxic, no distress, appears at stated age Cardiovascular: S1S2 reg, no murmur, positive posterior tibial pulse bilateral, Lungs: CTA bilateral, no rhonchi, no rales , no accessory muscle use Abdominal: soft, nontender to palpation, no guarding, no appreciable organomegaly Ext: no gross muscle atrophy, no edema b/l lower extremities, no contractures Neuro: CN II-XI grossly intact, no focal neuro deficits Psych: Alert, oriented, appropriate affect Assessment/Plan: Acute inferior ST segment elevated myocardial infarction status post PCI to the RCA Hypertension Dyslipidemia Asymptomatic bradycardia Chronic nicotine dependency History of statin-induced myopathy is -Aspirin 81 mg daily, Plavix 75 mg daily, Lipitor 40 mg at night, Zetia 10 mg daily, metoprolol 12.5 mg twice daily -Follow blood pressures -Cardiology note reviewed: Continue with current medications with the addition of losartan 25 mg daily. Possible discharge in 24 hours of doing well. Sinusitis -Flonase 2 sprays east nostril daily, Claritin 10 mg daily as needed Hypothyroidism -Synthroid 150 g oral daily Imaging: Echocardiogram: Ejection fraction 60-65%, borderline right ventricular dilatation Data Review: Labs reviewed included CBC, basic metabolic profile, and cholesterol panel: Remarkable for chloride 111, carbon dioxide 19, calcium 8.2, triglycerides 243, LDL 104, HDL 29.5 DVT prophylaxis: Loveox Anticipated discharge date: Pending Clinical Course Anticipated discharge place: Pending Clinical Course This dictation was prepared using [employer] voice recognition software. Though every attempt is made to correct errors during dictation some may still exist. Objective - Vital Signs Vital signs: Vital Signs Temp 98 F 03/30/23 12:00 Pulse 54 L 03/30/23 15:00 Resp 16 03/30/23 15:00 BP 138/96 03/30/23 15:00 Pulse Ox 95 03/30/23 15:00 FiO2 Intake & Output 03/29/23 03/30/23 03/30/23 18:59 06:59 18:59 Intake Total 900 490 Output Total 500 600 Balance 400 -110 Weight 104.1 kg 104.1 kg Intake: IV 900 Sodium Chloride 0.9% 1, 400 000 ml In Empty Bag 1 bag @ 1 ML/KG/HR 97.522 mls/ hr IV .[id number] [facility] Rx#: [id number] Oral 490 Output: Urine 500 600 Other: Voiding Method Urinal Toilet Urinal # Voids 0 1 - Labs CBC & Chem 7: 03/30/23 03:34 03/30/23 03:34 Labs: Abnormal Lab Results - Last 24 Hours (Table) 03/30/23 Range/Units 03:34 Chloride 111 H (98-107) mmol/L Carbon Dioxide 19 L (22-30) mmol/L Calcium 8.2 L (8.4-10.2) mg/dL Triglycerides 243.00 H (0.00-149.00) mg/dL VLDL Cholesterol, Calc 48.60 H (5.00-40.00) mg/dL HDL Cholesterol 29.50 L (40.00-60.00) mg/dL
[2023-03-30] MEDS: METOPROLOL TARTRATE 12.5 MG TAB PO SCH (20:38)
[2023-03-30] MEDS ORDERED: ATORVASTATIN 40 MG TAB PO SCH (21:00)
[2023-03-31] MEDS: LEVOTHYROXINE 75 MCG TAB PO SCH (05:33)
[2023-03-31] MEDS: LOSARTAN 25 MG TAB PO SCH (07:59)
[2023-03-31] MEDS: ASPIRIN 81 MG PO SCH (07:59)
[2023-03-31] MEDS: EZETIMIBE 10 MG TAB PO SCH (07:59)
[2023-03-31] MEDS: buPROPion SR 150 MG TABLET.ER PO SCH (07:59)
[2023-03-31] MEDS: ENOXAPARIN 40 MG/0.4 ML SYRINGE SQ SCH (07:59)
[2023-03-31] MEDS: CLOPIDOGREL 75 MG TAB PO SCH (07:59)
[2023-03-31] MEDS: FLUTICASONE 50MCG/SPRAY NASAL 16GM EA NOSTRIL SCH (08:00)
[2023-03-31] MEDS: METOPROLOL TARTRATE 12.5 MG TAB PO SCH (12:22)
--- NOTE | 2023-03-31 12:23 | P.PN ---
Subjective History of Present Illness: The patient is a 58-year-old male was transferred from the emergency room of [facility] with an acute inferior wall myocardial infarction. He has a known history of CAD, status post stenting of the RCA 2017 and moderate disease in the LAD and left circumflex who presented to the emergency room with an acute chest discomfort and was found to have ST segment elevation inferiorly. He received TNKase with improvement in his symptoms and was transferred for further evaluation. At the time of presentation his pain has almost resolved completely and there was improvement in his EKG changes. According to him he had some discomfort yesterday and subsequently today but that was the first time he has significant pain since his intervention in 2018. He denies any PND, orthopnea or peripheral edema. He has no dizziness, palpitations or syncope. He has a history of chronic tobacco use, hyperlipidemia but he is nondiabetic. He has myalgia from statin. Medications: Aspirin, levothyroxine, Wellbutrin, Ezetimibe 10 mg daily 03/30 Patient seen and examined. Patient underwent left heart catheterization yesterday with stenting of the RCA and otherwise mild disease on the left. He denies any further chest pain. Echocardiogram performed which shows EF 60%. He does have mild asymptomatic bradycardia with heart rates in the 50s. Additionally blood pressure mildly elevated and losartan was added. 03/31 Patient seen and examined. Patient denies chest pain or pressure. His metoprolol was decreased to 12.5 mg twice a day and still having minimal bradycardia heart rates 58 and therefore has been held. He has had multiple issues with statins in the past and appears is intolerant with significant muscle aches Physical Examination: 58-year-old male, evaluated in the cardiac catheterization laboratory, awake and alert with no significant pain ,Blood pressure 120/70, Heart rate 70 Head: Normocephalic. Eyes: Sclerae nonicteric. Neck: Good carotid upstroke, no bruit, no jugular venous distention. Lungs: Clear to auscultation. Heart: Regular rate and rhythm, S1-S2, no S3, no rub. No murmur. Abdomen: Soft nontender, positive bowel sounds no organomegaly. Extremities: No edema, intact distal pulses. Impression: 1. Acute inferior STEMI, s/p PCI RCA 2. Prior history of stenting of the RCA in 2018 3. Chronic tobacco use 4. Hyperlipidemia 5. Hypertension 6. Asymptomatic sinus bradycardia 7. Statin intolerance Plan: No statin given statin intolerance with number of statins in the past. Continue Zetia and likely add repatha as an outpatient Continue Toprol with asymptomatic bradycardia Appears stable for discharge home with outpatient follow-up Tobacco cessation Objective - Vital Signs Vital signs: Vital Signs Temp 97.9 F 03/31/23 12:00 Pulse 54 L 03/31/23 12:00 Resp 14 03/31/23 12:00 BP 135/95 03/31/23 12:00 Pulse Ox 95 03/31/23 12:00 FiO2 Intake & Output 03/30/23 03/31/23 03/31/23 18:59 06:59 18:59 Intake Total 740 280 Output Total 1000 600 500 Balance -260 -600 -220 Weight 104.1 kg 100.7 kg Intake: Oral 740 280 Output: Urine 1000 600 500 Other: Voiding Method Toilet Toilet Toilet Urinal Urinal Urinal # Voids 1 2 1 # Bowel Movements 1 - Labs CBC & Chem 7: 03/30/23 03:34 03/30/23 03:34
[2023-03-31 12:29] VITALS: BP 135/95; PULSE 54; RESP 14; TEMP 97.9
--- NOTE | 2023-03-31 13:24 | P.DS ---
Providers Date of admission: 03/29/23 21:25 Expected date of discharge: 03/31/23 Attending physician: Elena Simmons MD Consults: 03/29/23 22:33 Consult Physician Routine Consulting Provider: [facility] Consult Reason/Comments: Post Interventional Patient Do you want consulting provider notified?: Already Contacted Primary care physician: Carlos Gibson [place] [facility] Course: Discharge Diagnosis: Acute inferior ST segment elevated myocardial infarction status post PCI to the RCA Hypertension Dyslipidemia Asymptomatic bradycardia Chronic nicotine dependency History of statin-induced myopathy Sinusitis Hypothyroidism Hospital Course: Patient is a 58-year-old male with prior myocardial infarction, hypertension, dyslipidemia, and hypothyroidism who presented to an outside hospital with complaints of chest pain. He was transferred here and underwent emergent cardiac catheterization with stenting of the RCA. He was subsequently admitted to the ICU. He was started on aspirin and Plavix. His echo came back and his EF is 55-60%. He was doing well. He was cleared by cardiology and was determined stable for discharge. He has not discharged home on a statin due to his history of statin-induced myopathy. Follow-up: Dr. Guerra next week, Carlos Gibson in 2-3 days, new prescriptions include metoprolol 12.5 mg twice daily, Cozaar 25 mg daily, and Plavix 75 mg daily. He is not on a statin due to statin-induced myopathy. There is some consideration of starting Reptha in the outpatient setting. Patient seen and examined at bedside. He denies any chest pain or shortness of breath. He is feeling well and asking to be discharged home. Vital signs reviewed and stable. General: nontoxic, no distress, appears at stated age Cardiovascular: S1S2 reg, no murmur, positive posterior tibial pulse bilateral, Lungs: CTA bilateral, no rhonchi, no rales , no accessory muscle use Ext: no gross muscle atrophy, no edema b/l lower extremities, no contractures Neuro: CN II-XI grossly intact, no focal neuro deficits Psych: Alert, oriented, appropriate affect A total of 35 minutes of time were spent preparing this complex discharge summary. Patient was discharged on 03/31/23. This dictation was prepared using [employer] voice recognition software. Though every attempt is made to correct errors during dictation some may still exist. Plan - Discharge Summary New Discharge Prescriptions: New Metoprolol Tartrate [Lopressor] 12.5 mg PO BID #60 tab Losartan [Cozaar] 25 mg PO DAILY #30 tab Clopidogrel [Plavix] 75 mg PO DAILY #30 tab Continue Levothyroxine Sodium [Synthroid] 150 mcg PO DAILY Ezetimibe [Zetia] 10 mg PO DAILY #90 tab Aspirin EC [Ecotrin Low Dose] 81 mg PO DAILY buPROPion SR [Wellbutrin SR] 150 mg PO HS PRN PRN Reason: Anxiety buPROPion SR [Wellbutrin SR] 150 mg PO DAILY Discharge Medication List Levothyroxine Sodium [Synthroid] 150 mcg PO DAILY 07/29/18 [History] Ezetimibe [Zetia] 10 mg PO DAILY #90 tab 07/30/18 [Rx] Aspirin EC [Ecotrin Low Dose] 81 mg PO DAILY 03/29/23 [History] buPROPion SR [Wellbutrin SR] 150 mg PO DAILY 03/29/23 [History] buPROPion SR [Wellbutrin SR] 150 mg PO HS PRN 03/29/23 [History] Clopidogrel [Plavix] 75 mg PO DAILY #30 tab 03/31/23 [Rx] Losartan [Cozaar] 25 mg PO DAILY #30 tab 03/31/23 [Rx] Metoprolol Tartrate [Lopressor] 12.5 mg PO BID #60 tab 03/31/23 [Rx] Follow up Appointment(s)/Referral(s): Paulo Guerra DO [STAFF PHYSICIAN] - 1 Week Carlos Gibson NPC [Primary Care Provider] - 1-2 Days Patient Instructions/Handouts: Heart Attack (DC), Heart Healthy Diet (DC) Activity/Diet/Wound Care/Special Instructions: Activity: As tolerated Diet: Heart Healthy Special Instructions: Take all medications as prescribed Discharge Disposition: HOME SELF-CARE
== END 2023-03-31 13:20 | disposition home or self-care (01) | DRG 174 ==
LOC: 2SICU 21:25
PROVIDERS: ADMIT Internal Medicine; ATTEND Internal Medicine
PROC: 027034Z Dilation of Coronary Artery, One Artery with Drug-eluting Intraluminal Device, Percutaneous Approach (ICD-10-PCS; principal; 2023-03-29 21:20)
PROC: 4A023N7 Measurement of Cardiac Sampling and Pressure, Left Heart, Percutaneous Approach (ICD-10-PCS; 2023-03-29 21:20)
PROC: B2111ZZ Fluoroscopy of Multiple Coronary Arteries using Low Osmolar Contrast (ICD-10-PCS; 2023-03-29 21:20)
DX: I21.19 ST elevation (STEMI) myocardial infarction involving other coronary artery of inferior wall (principal); I25.10 Atherosclerotic heart disease of native coronary artery without angina pectoris; I25.2 Old myocardial infarction; Z79.02 Long term (current) use of antithrombotics/antiplatelets; Z79.82 Long term (current) use of aspirin; Z79.890 Hormone replacement therapy; Z95.5 Presence of coronary angioplasty implant and graft; F17.210 Nicotine dependence, cigarettes, uncomplicated; E78.5 Hyperlipidemia, unspecified; E03.9 Hypothyroidism, unspecified; R00.1 Bradycardia, unspecified; J32.9 Chronic sinusitis, unspecified; Z88.8 Allergy status to other drugs, medicaments and biological substances; Z88.5 Allergy status to narcotic agent
CPT/HCPCS: 80048; 80061; 85027; 92978; 93306; 93458

== ENCOUNTER 2023-09-12 08:19 | Day surgery (SDC) | payer OTHER ==
[2023-09-10 15:13] VITALS: BMI 28.2
[~2023-09-12 08:19] MED LIST: LIDOCAINE 1% (10MG/ML) FOR IV START INTRADERMA PRN
[2023-09-12] MEDS: LACTATED RINGERS 1,000 ML IV SCH (09:22)
[2023-09-12 09:29] VITALS: TEMP 97.3
[2023-09-12] MEDS ORDERED: PROPOFOL 10 MG/ML 20 ML VIAL IV ONE (09:37)
--- NOTE | 2023-09-12 09:42 | P.GSHP ---
History of Present Illness H&P Date: 09/12/23 Chief Complaint: GI bleed this is a 58-year-old male who presents today for colonoscopy. Patient initial rectal bleeding. Patient states he has issues with hemorrhoids. Past Medical History Past Medical History: Hyperlipidemia, Hypertension, Myocardial Infarction ([place]), Thyroid Disorder Additional Past Medical History / Comment(s): Hemmorhoids, Hypothyroidism, [place] with stent 01/2019, [place] Apr 2023, "stent was blocked." Last Myocardial Infarction Date:: 2022 History of Any Multi-Drug Resistant Organisms: None Reported Past Surgical History: Heart Catheterization With Stent, Orthopedic Surgery Additional Past Surgical History / Comment(s): Heart Cath with stent to the mid RCA (01/2019, then repaired 2022, "first stent got blocked", elbow surgery as a child. Past Anesthesia/Blood Transfusion Reactions: No Reported Reaction Date of Last Stent Placement:: 2022 Smoking Status: Current every day smoker - Past Family History Father History Unknown: Yes Family Medical History: Cancer Mother History Unknown: Yes Family Medical History: Dementia Additional Family Medical History / Comment(s): at 68 yrs old from Alzheimers. Medications and Allergies Home Medications Medication Instructions Recorded Confirmed Type Levothyroxine Sodium [Synthroid] 150 mcg PO QAM 07/29/18 09/10/23 History Aspirin EC [Ecotrin Low Dose] 81 mg PO DAILY 03/29/23 09/10/23 History buPROPion SR [Wellbutrin SR] 150 mg PO BID 03/29/23 09/10/23 History Clopidogrel [Plavix] 75 mg PO DAILY #30 tab 03/31/23 09/10/23 Rx Ezetimibe [Zetia] 10 mg PO QAM 09/10/23 09/10/23 History Losartan [Cozaar] 25 mg PO QAM 09/10/23 09/10/23 History Lovastatin [Mevacor] 40 mg PO DAILY 09/10/23 09/10/23 History Metoprolol Tartrate 12.5 mg PO BID 09/10/23 09/10/23 History Allergies Allergy/AdvReac Type Severity Reaction Status Date / Time codeine Allergy Lethargic Verified 03/29/23 21:31 [id number] Reductase AdvReac Muscle Verified 09/10/23 14:50 Inhibitor Joint Pain/Problems Surgical - Exam Vital Signs Temp Pulse Resp BP Pulse Ox 97.3 F L 57 L 20 142/89 95 09/12/23 09:08 09/12/23 09:08 09/12/23 09:08 09/12/23 09:08 09/12/23 09:08 - General well developed, well nourished, no distress - Eyes PERRL - ENT normal pinna - Neck no masses - Respiratory normal expansion - Cardiovascular Rhythm: regular - Abdomen Abdomen: soft, non tender Assessment and Plan Plan: GI bleed. We'll perform colonoscopy.
--- NOTE | 2023-09-12 10:06 | P.OP ---
Date of Procedure: 09/12/23 Preoperative Diagnosis: GI bleed Postoperative Diagnosis: severe internal and external hemorrhoids Mild diverticulosis Small rectal polyp Procedure(s) Performed: colonoscopy Anesthesia: MAC Surgeon: Ravi Cueto Pathology: other (rectal polyp) Condition: stable Disposition: PACU Description of Procedure: the patient's placed on the endoscopy table in the lateral position. He received IV sedation. Digital rectal exam was performed which revealed prolapsed internal and external hemorrhoids. The flexible colonoscope was then placed patient anus. The colonoscope was then placed patient anus and passed throughout the entire colon. The ileocecal valve wwas not visualized secondary to a large amount liquid stool. The visualized right colon appeared normal. The transverse colon appeared normal. In the descending and sigmoid colon is mild diverticular changes. Scope was then brought back the rectum this appeared normal. Scope withdrawn for patient large internal and external hemorrhoids were visualized.
[2023-09-12 10:51] VITALS: BP 127/69; PULSE 63; RESP 18
[2023-09-12] MEDS: HYDROcodone/APAP 5-325MG 1 EACH TAB PO ONE (11:11)
== END 2023-09-12 11:27 | disposition home or self-care (01) ==
LOC: ORWHC2ENDO 08:19
PROVIDERS: ATTEND Surgery
DX: K62.1 Rectal polyp (principal); K57.30 Diverticulosis of large intestine without perforation or abscess without bleeding; K64.4 Residual hemorrhoidal skin tags; K62.5 Hemorrhage of anus and rectum; I10 Essential (primary) hypertension; E78.5 Hyperlipidemia, unspecified; I25.2 Old myocardial infarction; E07.9 Disorder of thyroid, unspecified; F17.200 Nicotine dependence, unspecified, uncomplicated; Z95.5 Presence of coronary angioplasty implant and graft; Z79.890 Hormone replacement therapy; Z79.02 Long term (current) use of antithrombotics/antiplatelets; Z79.899 Other long term (current) drug therapy; Z88.5 Allergy status to narcotic agent; Z88.8 Allergy status to other drugs, medicaments and biological substances
CPT/HCPCS: 88305; 45380; J2704

== ENCOUNTER 2023-10-01 06:12 | Day surgery (SDC) | payer OTHER ==
[2023-09-27 14:58] VITALS: BMI 28.2
[~2023-10-01 06:12] MED LIST changes: -LIDOCAINE 1% (10MG/ML) FOR IV START INTRADERMA PRN; +Pre Op ABX Message 1 EACH MISC MISCELLANE ONE
[2023-10-01] MEDS ORDERED: SCOPOLAMINE 1 MG/72 HR PATCH TRANSDERM ONE (06:19)
[2023-10-01] MEDS: LACTATED RINGERS 1,000 ML IV SCH (06:56)
[2023-10-01] MEDS: ACETAMINOPHEN TAB 500 MG TAB PO PRN (06:59)
[2023-10-01] MEDS: DEXAMETHASONE SOD PHOSPHATE 4 MG/ML 1 ML VIAL IV ONE (06:59)
[2023-10-01] MEDS: ONDANSETRON 4 MG/2 ML VIAL IVP ONE (06:59)
[2023-10-01] MEDS: HEPARIN SODIUM,PORCINE 5,000 UNIT/ML 1 ML VIAL SQ PRN (06:59)
[2023-10-01] MEDS ORDERED: MIDAZOLAM 2 MG/2 ML VIAL IV PRN (07:00)
[2023-10-01] MEDS ORDERED: fentaNYL (PF) 50 MCG/ML 2 ML AMP IV PRN (07:00)
[2023-10-01] MEDS ORDERED: KETOROLAC 15 MG/ML 1 ML VIAL ONE (07:32)
[2023-10-01] MEDS ORDERED: MIDAZOLAM 2 MG/2 ML VIAL ONE (07:32)
[2023-10-01] MEDS ORDERED: PROPOFOL 10 MG/ML 20 ML VIAL IV ONE (07:32)
[2023-10-01] MEDS ORDERED: fentaNYL (PF) 50 MCG/ML 2 ML AMP ONE (07:32)
[2023-10-01] MEDS ORDERED: SUCCINYLCHOLINE CHLORIDE 200 MG/10 ML VIAL IV ONE (07:32)
[2023-10-01] MEDS ORDERED: LIDOCAINE 1% INJ 10MG/ML (20 ML MDV) ONE (07:32)
[2023-10-01] MEDS: SODIUM CHLORIDE 0.9% 50 ML with ceFAZolin 2,000 MG IV ONE (07:37)
[2023-10-01] MEDS: LIDOCAINE 1%-EPI 1:100,000 20 ML VIAL SQ ONE (08:06)
--- NOTE | 2023-10-01 08:17 | P.OP ---
Date of Procedure: 10/01/23 Preoperative Diagnosis: prolapsed internal/external hemorrhoids Postoperative Diagnosis: same Procedure(s) Performed: excision of internal and external hemorrhoids Anesthesia: MIKE Surgeon: Ravi Cueto Estimated Blood Loss (ml): 5 Pathology: other (internal and external hemorrhoids) Condition: stable Disposition: PACU Description of Procedure: the patient's placed on the operating table in the prone position after receiving general anesthesia. His anus was prepped and draped usual sterile fashion. The patient had grade 4 prolapsed hemorrhoids. Ithe anal retractor was placed and anus.s. The left lateral hemorrhoidal column was graspedwith a pair of Allis clamps and then using the Harmonic scissors the hemorrhoidectomy is performed.the right anterior and right posterior hemorrhoidal columns were dissected in identical fashion. There was no bleeding seen. Anus was packed with Gelfoam. 1% local Xylocaine was applied. Patient tolerated procedure well. He was sent to recovery room in stable condition.
[2023-10-01 08:47] VITALS: TEMP 97.3
[2023-10-01 11:07] VITALS: BP 131/65; PULSE 63; RESP 16
== END 2023-10-01 11:17 | disposition home or self-care (01) ==
LOC: OR 06:12
PROVIDERS: ATTEND Surgery
DX: K64.4 Residual hemorrhoidal skin tags (principal); E03.9 Hypothyroidism, unspecified; I10 Essential (primary) hypertension; E78.5 Hyperlipidemia, unspecified; I20.9 Angina pectoris, unspecified; I25.2 Old myocardial infarction; E07.9 Disorder of thyroid, unspecified; F17.210 Nicotine dependence, cigarettes, uncomplicated; F41.9 Anxiety disorder, unspecified; Z79.01 Long term (current) use of anticoagulants; K21.9 Gastro-esophageal reflux disease without esophagitis; Z79.899 Other long term (current) drug therapy; Z88.5 Allergy status to narcotic agent; Z79.890 Hormone replacement therapy; Z98.890 Other specified postprocedural states
CPT/HCPCS: 88304; 46260; J2250; J0330; J1644; J1100; J2405; J0690; J2001; J3010; J1885; J2704